=== PATIENT | female | born 1975 | race African-American/Black ===

== ENCOUNTER 2017-01-08 22:10 | Emergency (ER) | payer OTHER ==
[~2017-01-08] VITALS: Ht 165.1 cm; Wt 78.9 kg
[2017-01-08] MEDS ORDERED: ZOLO25TA PO (22:36)
[2017-01-08] MEDS ORDERED: ACET50TAOT PO (22:36)
[2017-01-09] MEDS ORDERED: KETOROLAC 60 MG/2 ML VIAL (J1885) IM ONE
[2017-01-09 00:42] VITALS: BP 128/67
[2017-01-09] MEDS ORDERED: VALI5TAB PO (00:43)
[2017-01-09] MEDS ORDERED: NAPR500T PO (00:43)
== END 2017-01-09 00:52 | disposition home or self-care (01) ==
LOC: M ED 22:10
DX: M54.41 Lumbago with sciatica, right side (principal); M54.42 Lumbago with sciatica, left side; Z79.899 Other long term (current) drug therapy
CPT/HCPCS: 96372; 99282; J1885; J3360

== ENCOUNTER → 2017-01-11 | Day surgery (SDC) | payer OTHER ==
[~2017-01-11] VITALS: Ht 165.1 cm; Wt 76.2 kg
[~2017-01-11] MED LIST: ACET50TAOT PO; ACETAMINOPHEN 650 MG SUPP As Ordered ONE; ACETAMINOPHEN 650 MG SUPP PR ONE; BUPIVACAINE HCL 0.25% 30 ML VIAL As Ordered ONE; CIPR-249 PO; GLYCOPYRROLATE INJ 0.2 MG/ML 2 ML VIAL As Ordered ONE; IBUP1TAB7 PO; KETO10TAB PO; KETOROLAC 60 MG/2 ML VIAL (J1885) As Ordered ONE; LACTATED RINGER'S 1000 ML IV ONE; LIDOCAINE 2% INJ 100 MG/5 ML SDV (FOR ANES.) As Ordered ONE; LR 1,000 ML IV ONE; LR 1,000 ML IV SCH; METHYLENE BLUE 0.5% (5MG/ML) 10 ML AMP (PROVAYBLUE)(Q9968 PER 1MG) As Ordered ONE; MIDAZOLAM INJ 2 MG/2 ML VIAL (J2250) As Ordered ONE; MOTR200T44 PO; NAPR500T PO; NEOSTIGMINE 1MG/ML 5 ML SYRINGE (J2710) As Ordered ONE; NORCOTAB PO; ONDANSETRON 4MG/2ML VIAL (J2405) As Ordered ONE; ONDANSETRON 4MG/2ML VIAL (J2405) IV PRN; OXYC1TAB23 PO; PERCOCET 5MG/325MG TAB As Ordered ONE; PERCOCET 5MG/325MG TAB PO PRN; PROPOFOL 200 MG/20 ML VIAL As Ordered ONE; ROCURONIUM BROMIDE 50 MG/5 ML VIAL/SYRINGE As Ordered ONE; VALI5TAB PO; ZITHTAB PO; ZOLO25TA PO; dexameTHASONE 4 MG/ML 1ML VIAL (J1100) As Ordered ONE; fentaNYL 100 MCG/2 ML INJECTION (J3010) As Ordered ONE; fentaNYL 100 MCG/2 ML INJECTION (J3010) IV PRN
[2017-01-11 09:58] LABS: MEAN CORPUSCULAR HEMOGLOBIN 30.4 pg (27.0-33.0); MEAN CORPUSCULAR HGB CONC 33.4 g/dl (32.0-36.5); MEAN CORPUSCULAR VOLUME 90.9 fl (80.0-96.0); RED CELL DISTRIBUTION WIDTH 12.5 % (11.5-14.5); WHITE BLOOD COUNT 4.6 K/mm3 (4.0-10.0)
[2017-01-11 10:34] LABS: ANION GAP 6 MEQ/L (8-16); BLOOD UREA NITROGEN 13 MG/DL (7-18); CALCIUM LEVEL 8.9 MG/DL (8.5-10.1); CARBON DIOXIDE LEVEL 29 MEQ/L (21-32); CHLORIDE LEVEL 103 MEQ/L (98-107); CREATININE FOR GFR 0.85 MG/DL (0.55-1.02); GLOMERULAR FILTRATION RATE > 60.0 (>60); GLUCOSE, FASTING 93 MG/DL (70-105); HCG, SERUM QUANTITATIVE < 1.0 MIU/ML; POTASSIUM SERUM 4.3 MEQ/L (3.5-5.1); SODIUM LEVEL 138 MEQ/L (136-145)
[2017-01-11 14:30] VITALS: BP 132/78
--- NOTE | 2017-01-15 07:45 | RO ---
DATE OF PROCEDURE: 01/11/2017 PREOPERATIVE DIAGNOSIS: Primary infertility. 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 No evidence of endometriosis. Patent left tube. Nonpatent right tube. Distortion of the intrauterine cavity on the right side secondary to compression from the myoma. OPERATION PROPOSED: Diagnostic laparoscopy, chromotubation hysteroscopy dilation and curettage. OPERATION PERFORMED: Diagnostic laparoscopy, hysteroscopy, dilation and curettage. SURGEON: Eduardo Quintero MD ALUMINUM BOAT INSPECTOR: ANESTHESIA: General, plus local anesthetic for intraperitoneal procedures. This lady is a 41-year-old, 0, who has come with the history of primary infertility. Lab work evaluation apparently was normal. Ultrasound suggested of a myoma on the right side of the uterus, external to the uterus. Normal endometrial cavity was noted and semen analysis had been normal. No evidence to suggest any etiology in regards to her primary infertility. Basal body temperature thermometer tracking was normal. She had elected to have a hysteroscopy, laparoscopy to evaluate for endometriosis and evaluate the fibroid tumor. She was concerned that her mother had required hysterectomy because of fibroid. Risks and benefits were discussed and the patient was booked for 01/11/2017. ESTIMATED BLOOD LOSS: Less than 20 mL. DESCRIPTION OF PROCEDURE: After adequate anesthesia, prepped and draped in the lithotomy position, a Quintero catheter in bladder draining clear urine. Sequentials on both legs. No requirement for antibiotics. Acetaminophen suppository 1300 mg per rectum. Time-out performed. A weighted speculum was placed in the vagina. Single-tooth tenaculum on the anterior lip of the cervix. Uterus is sounded to 8 cm. The bulb catheter for hysterosalpingogram with dye was placed in the intrauterine cavity without any difficulty, and reprepping and draping, a small subumbilical incision was made. Veress needle was applied. 3.1 liters of CO2 at a flow rate of 2 liters per minute to a pressure of 14. Visiport was then used. No evidence of perforation or bleeding was noted. Panoramic review of the right upper quadrant was normal. The liver edge was smooth. The right appendiceal area was normal. The right round ligament was normal. Noted that the uterus is deviated off to the right with a huge vascular myoma adherent to the cornua and the tube on the right side. Tis appeared to be larger than the actual uterus itself. The right ovary appeared to be normal. The anterior aspect of the bladder was clear. The left tube and ovary appeared to be normal. The cul-de-sac was clear. There was no evidence of endometriosis at that time, and the left upper quadrant appeared to be normal. A 3 mm port was placed on the left side in order to lift up the myoma. We were able to manipulate the dye and interestingly, the right tube did not demonstrate any fill and there was no evidence of even a protrusion of dye through the right tube. Even though we lifted up the myoma as best we could, it appeared to still be adherent on the right side probably compromising the tube. The left tube flowed freely with dye and left ovary appeared to be normal. With that done, we irrigated out the abdomen. We left 250 mL of normal saline in the abdomen, deflated to 4 mm pressure, removed the left 5 mm port, removed the mainstem port. Under direct vision, we then put a subcuticular stitch in the left side with Marcaine 0.25% and we put a deep stitch in the umbilical area closing off the fascia and a subcuticular stitch with Marcaine 0.25% and skin tapes the both places. Turning our attention to the vaginal part of the procedure, which was hysteroscopy, dilation and curettage, we removed the bulb catheter with the dye, again sounding the uterus to depth of 8 cm. It was slightly deviated off to the right. We then went ahead and dilated up to #14 dilator. Then, hysteroscope was introduced. Review surprisingly showed the defect in the posterior wall from the small myoma in the myometrium, but more impressively was the fact that there was no opening to the right tube based on the fact that the myoma on the right side probably closed off the entire tube. It was smooth. It appeared to be muscular. On the left side, we could see the obvious opening and the patency of dye and installation on the left side. The rest of the cavity appeared to be distorted because of the myoma on the right side, but not to a significant degree that an intrauterine could not implant. Our immediate thoughts about this patient is that she probably needs to have the myoma removed and the possibility of sacrificing the right tube as it appears to be compromised by the myoma. We used 150 mL of fluid in. We took 150 mL out. The instruments were then removed. The curettage specimen was sent off to pathology under separate cover. There was minimal amount of tissue in the uterus, it was mostly blood clots, but we sent what we got. The uterus was placed in anatomical position. We swabbed out the vagina. The Quintero catheter was removed, and the patient was sent to recovery in good condition.
== END | disposition home or self-care (01) ==
LOC: M SDC 09:21
PROVIDERS: ATTEND Obstetrics & Gynecology
DX: N97.1 Female infertility of tubal origin (principal); D25.9 Leiomyoma of uterus, unspecified; N85.4 Malposition of uterus; M54.2 Cervicalgia; F41.9 Anxiety disorder, unspecified; F32.9 Major depressive disorder, single episode, unspecified; Z79.899 Other long term (current) drug therapy; Z87.891 Personal history of nicotine dependence
CPT/HCPCS: 36415; 49320; 58558; 80048; 84702; 85027; 88304; J1100; J1885; J2250; J2405; J2710; J3010; Q9968

== ENCOUNTER 2017-01-14 20:40 | Inpatient (IN) | payer OTHER ==
[~2017-01-14] VITALS: Ht 165.1 cm; Wt 76.8 kg
[~2017-01-14 20:40] MED LIST changes: -ACETAMINOPHEN 650 MG SUPP As Ordered ONE; -ACETAMINOPHEN 650 MG SUPP PR ONE; -BUPIVACAINE HCL 0.25% 30 ML VIAL As Ordered ONE; -CIPR-249 PO; -GLYCOPYRROLATE INJ 0.2 MG/ML 2 ML VIAL As Ordered ONE; -IBUP1TAB7 PO; -KETO10TAB PO; -KETOROLAC 60 MG/2 ML VIAL (J1885) As Ordered ONE; -LACTATED RINGER'S 1000 ML IV ONE; -LIDOCAINE 2% INJ 100 MG/5 ML SDV (FOR ANES.) As Ordered ONE; -LR 1,000 ML IV ONE; -LR 1,000 ML IV SCH; -METHYLENE BLUE 0.5% (5MG/ML) 10 ML AMP (PROVAYBLUE)(Q9968 PER 1MG) As Ordered ONE; -MIDAZOLAM INJ 2 MG/2 ML VIAL (J2250) As Ordered ONE; -MOTR200T44 PO; -NEOSTIGMINE 1MG/ML 5 ML SYRINGE (J2710) As Ordered ONE; -NORCOTAB PO; -ONDANSETRON 4MG/2ML VIAL (J2405) As Ordered ONE; -ONDANSETRON 4MG/2ML VIAL (J2405) IV PRN; -OXYC1TAB23 PO; -PERCOCET 5MG/325MG TAB As Ordered ONE; -PERCOCET 5MG/325MG TAB PO PRN; -PROPOFOL 200 MG/20 ML VIAL As Ordered ONE; -ROCURONIUM BROMIDE 50 MG/5 ML VIAL/SYRINGE As Ordered ONE; -ZITHTAB PO; -dexameTHASONE 4 MG/ML 1ML VIAL (J1100) As Ordered ONE; -fentaNYL 100 MCG/2 ML INJECTION (J3010) As Ordered ONE; -fentaNYL 100 MCG/2 ML INJECTION (J3010) IV PRN
[2017-01-14] MEDS ORDERED: VALI5TAB PO (21:02)
[2017-01-14] MEDS ORDERED: NAPR500T PO (21:02)
[2017-01-14] MEDS ORDERED: MOTR200T44 PO (21:02)
[2017-01-14] MEDS ORDERED: OXYC1TAB23 PO (21:02)
[2017-01-14] MEDS ORDERED: NS 1,000 ML IV ONE (21:15)
[2017-01-14] MEDS ORDERED: MORPHINE 4 MG/ML 1ML SYRINGE IV ONE (21:15)
[2017-01-14] MEDS ORDERED: GASTROGRAFIN SOLUTION 30ML (Q9963) PO ONE ×2 (21:40→22:10)
[2017-01-14 22:02] LABS: ADD MANUAL DIFFER YES; DIFF SLIDE NUMBER 171; MEAN CORPUSCULAR HEMOGLOBIN 30.3 pg (27.0-33.0); MEAN CORPUSCULAR HGB CONC 32.9 g/dl (32.0-36.5); PLATELET COUNT, AUTOMATED 303 k/mm3 (150-450); RED CELL DISTRIBUTION WIDTH 13.2 % (11.5-14.5); WHITE BLOOD COUNT 7.6 K/mm3 (4.0-10.0)
[2017-01-14 22:07] LABS: INR 1.1
[2017-01-14 22:24] LABS: ALBUMIN 2.8 GM/DL (3.2-5.2); ALBUMIN/GLOBULIN RATIO 0.72 (1.00-1.93); ALKALINE PHOSPHATASE 77 U/L (45-117); ALT/SGPT 17 U/L (12-78); AMYLASE 70 U/L (25-115); ANION GAP 9 MEQ/L (8-16); AST/SGOT 15 U/L (15-37); BILIRUBIN,DIRECT 0.5 MG/DL (0.0-0.2); BLOOD UREA NITROGEN 14 MG/DL (7-18); CALCIUM LEVEL 9.4 MG/DL (8.5-10.1); CARBON DIOXIDE LEVEL 28 MEQ/L (21-32); CHLORIDE LEVEL 98 MEQ/L (98-107); CREATININE FOR GFR 0.97 MG/DL (0.55-1.02); GLOMERULAR FILTRATION RATE > 60.0 (>60); GLUCOSE, FASTING 99 MG/DL (70-105); POTASSIUM SERUM 4.1 MEQ/L (3.5-5.1); SODIUM LEVEL 135 MEQ/L (136-145); TOTAL PROTEIN 6.7 GM/DL (6.4-8.2)
[2017-01-14 22:28] LABS: CONTROL LINE HCG INT CTR LINE PRESENT
[2017-01-14 22:44] LABS: BANDS 5 % (< 11)
[2017-01-14 22:45] LABS: TOXIC VACUOLATION 1+
[2017-01-14] MEDS ORDERED: ISOVUE-370 76% 100ML VIAL (Q9967) As Ordered ONE (23:20)
--- NOTE | 2017-01-15 01:20 | REPUSA ---
CLINICAL HISTORY: Post op. TECHNIQUE: Multiple axial, sagittal and coronal CT images were obtained through the abdomen and pelvi s after administration of intravenous contrast material. COMMENTS: The liver is of uniform attenuation without mass or defect. There is no intra or extrahepatic biliary ductal dilatation. The spleen is normal. The gallbladder is within normal limits. The pancreas is of normal contour and attenuation characteristics. There is no evidence of adrenal mass. Both kidneys demonstrate prompt and equal nephrograms. The kidneys are normal in size, shape and conf iguration. There is no evidence of renal or ureteral mass. No renal or ureteral calculi are identifie d. There is no hydroureter or hydronephrosis. Free air is noted, likely post-op. Diffuse abdominal and pelvic ascites is noted. No evidence for appendicitis. Multiple dilated loops of small bowel are noted with transition in the distal ileum compatible with small bowel obstruction. There is no evidence of intrinsic or extrinsic bladder mass. Images of the lung bases show no evidence of pleural or parenchymal mass. There are no pleural effusi ons. Bibasilar consolidations are noted compatible with pneumonia. The bony structures are free of lytic or blastic lesions. IMPRESSION: Free air is noted, likely post-op. Diffuse abdominal and pelvic ascites is noted. Multiple dilated loops of small bowel are noted with transition in the distal ileum compatible with s mall bowel obstruction. Bibasilar consolidations are noted compatible with pneumonia. Thank you for your kind referral of this patient.
[2017-01-15] MEDS ORDERED: IBUP1TAB7 PO (02:39)
[2017-01-15] MEDS ORDERED: MORPHINE 4 MG/ML 1ML SYRINGE IV ONE (03:00)
[2017-01-15] MEDS: LR 1,000 ML IV SCH ×3 (04:45→16:24)
[2017-01-15] MEDS ORDERED: ONDANSETRON 4MG/2ML VIAL (J2405) IV PRN (04:45)
[2017-01-15 06:15] VITALS: BP 135/78
--- NOTE | 2017-01-15 06:21 | CR ---
DATE OF CONSULTATION: 01/15/2017 HISTORY OF PRESENT ILLNESS: This lady is a 41-year-old 0 who had history of a diagnostic laparoscopy , hysteroscopy, dilation and curettage (D and C) for primary infertility. At the time of the operative procedure, we noticed that she had a large myoma on the right side of the fundus which was incorporated into the right tube. The ovary itself appeared to be normal. The left ovary and tube were normal. Chromotubation indicated patent left tube, but nonpatent right tube. The rest of the examination was unremarkable. The surgical procedure was unremarkable. There was no evidence to suggest any perforation at time of surgery. Hysteroscopy D and C were performed and confirmed the myoma compressing the uterine cavity, but no other abnormality was noted. She did have a D and C; however, there was minimal tissue as she had just completed her period. She went home in the usual fashion postoperatively as a day stay with Percocet and ibuprofen, and in her history to date says that when she went home she had difficulty in voiding but eventually that resolved. She was able to keep fluids down, but she was not hungry and did not feel like eating, but she did maintain fluid control, but she said she never passed any gas. She came in through emergency because of abdominal pain which was increasing in intensity. She had no nausea, vomiting at that time, but she did have vomiting at the time of the CT scan and presently with the nasogastric (NG) tube in she has some green fluid which is the seaweed and some other herbal medicine in the drink that she was drinking. PHYSICAL EXAMINATION: On physical examination she is normocephalic, atraumatic. Neck full range of motions. Pupils equal and reactive to light. She is responsive, answers questions. She is oriented to the three spheres. Her chest appears to be clear although the CT scan says there is some pneumonia-like changes in the lower bases, but she is able to take a deep breath without any pain. She has no costovertebral angle tenderness but she is having some pain down the side of her leg, probably sciatic and it is probably related to position. Her abdomen is distended although it is less so now that she has the NG tube in. There is evidence of bowel sounds present. The incisional sites are clean and dry. There is no rebound or guarding but there is on deep palpation some discomfort. The rest of the examination: She has no rashes or lesions or pruritus. She is not complaining of any arthralgia or myalgia. She is not complaining of cough, wheeze, shortness of breath or dyspnea on exertion. She has no allergies. She has no chest pain. She is not bleeding. She is neuro complete. She presently is able to void. As mentioned, she has not been able to pass gas. She is bit distended and CT scan indicates the suggestion of small bowel obstruction. Her gynecologic history is unremarkable. Her surgical history is negative except for this initial event. She has no contributing family history. The only thing that bothers her is the fact that her mother had fibroids and required to have a hysterectomy, and this patient has not had a baby to present. She does not smoke or drink, does not abuse drugs. She is . There is no domestic violence. On review of her vitals, her temperature is 99.1, respirations are 18, pulse 119. She oxygen saturates on room air at 95%. Blood pressure is 136/79. LABORATORY DATA: Her white count 7.6, hemoglobin 11.9, hematocrit 36.3. Platelets are estimated as normal. Electrolytes are normal. Chemistry is normal. Anion gap is nine. GFR is normal. Urine was not taken. Her coagulation studies are within normal limits. Her liver function is normal. CT reveals free air which is normal postoperatively, and having left 250 mL of saline in the abdomen which has not resolved yet. Dilated loops of small bowel and basilar consolidation in the lower lobe of her lungs. There is transition through the to the ileum. In summary, we have a postoperative day two patient with small bowel obstruction , etiology yet to be determined, presently comfortable with the NG tube and after discussion with Dr. Gonzalez, maintaining NG tube and monitoring the patient for resolution in the next 24 hours and planned intervention if necessary. Edited: raymon 01/28/2017 [id number] MTDD
[2017-01-15 08:00] VITALS: BP 135/93
--- NOTE | 2017-01-15 09:13 | REP ---
CHEST, ONE VIEW: HISTORY: Dyspnea. Patchy density is present in the lower lobes consistent with atelectasis or infiltrates. A small amount of free air is present under the right hemidiaphragm. The heart is normal in size. The pulmonary vasculature is normal in appearance. IMPRESSION: 1. Bibasilar atelectasis or infiltrates. 2. There is a small amount of free air under the right hemidiaphragm likely secondary to recent surgery. Signed by Mahesh Hernandez MD 01/15/2017 09:25 A
[2017-01-15] MEDS ORDERED: PROMETHAZINE INJ 25 MG/ML VIAL (J2550) IV PRN (11:00)
[2017-01-15 11:07] LABS: MEAN CORPUSCULAR HEMOGLOBIN 30.2 pg (27.0-33.0); MEAN CORPUSCULAR HGB CONC 32.7 g/dl (32.0-36.5); MEAN CORPUSCULAR VOLUME 92.2 fl (80.0-96.0); RED CELL DISTRIBUTION WIDTH 13.2 % (11.5-14.5); WHITE BLOOD COUNT 8.5 K/mm3 (4.0-10.0)
[2017-01-15 11:29] LABS: ANION GAP 9 MEQ/L (8-16); BLOOD UREA NITROGEN 14 MG/DL (7-18); CALCIUM LEVEL 8.9 MG/DL (8.5-10.1); CARBON DIOXIDE LEVEL 29 MEQ/L (21-32); CHLORIDE LEVEL 100 MEQ/L (98-107); CREATININE FOR GFR 0.75 MG/DL (0.55-1.02); GLOMERULAR FILTRATION RATE > 60.0 (>60); GLUCOSE, FASTING 114 MG/DL (70-105); POTASSIUM SERUM 4.2 MEQ/L (3.5-5.1); SODIUM LEVEL 138 MEQ/L (136-145)
[2017-01-15] MEDS: KETOROLAC 30 MG/ML VIAL (J1885) IV PRN ×2 (11:58→18:39)
[2017-01-15 12:00] VITALS: BP 157/93
--- NOTE | 2017-01-15 12:54 | REP ---
ABDOMEN, FLAT AND UPRIGHT, PA CHEST, THREE VIEWS: HISTORY: Small bowel obstruction. COMPARISON: CT 01/14/2017 Air is present in small and large intestine. There are several dilated loops of small intestine. Several air fluid levels are present. The number of dilated loops of small intestine and degree of dilatation is decreased compared to the previous study. A small amount of free air is present under the right hemidiaphragm. An NG tube is present. Linear densities are present in the lower lobes consistent with atelectasis. IMPRESSION: Findings consistent with small bowel obstruction that are decreased compared to the previous study. Signed by Mahesh Hernandez MD 01/15/2017 12:57 P
[2017-01-15] MEDS: ONDANSETRON 4MG/2ML VIAL (J2405) IV PRN (15:49)
[2017-01-15 16:00] VITALS: BP 138/86
[2017-01-15] MEDS: MORPHINE 2 MG/ML 1ML SYRINGE IV PRN (16:24)
[2017-01-15 20:00] VITALS: BP 134/79
[2017-01-16] VITALS: BP 142/78
[2017-01-16] MEDS: LR 1,000 ML IV SCH ×3 (00:30→21:26)
[2017-01-16 04:00] VITALS: BP 150/80
[2017-01-16] MEDS: METOCLOPRAMIDE INJ 10MG/2ML VIAL (J2765) IV PRN (04:57)
--- NOTE | 2017-01-16 09:08 | REP ---
Acute abdominal series series including PA chest and supine upright abdomen: Comparisons are 01/15/[address] of 01/15/2017. PA chest: There is free air beneath the right hemidiaphragm, however, appears decreased in volume from 01/15/2017. There is bibasilar atelectasis above both right and left hemidiaphragms, not significantly changed. The remainder the lung woo are clear. There is a nasogastric tube terminating satisfactorily in the abdominal left upper quadrant, unchanged from 01/15/2017. Cardiac size is normal. Impression: Free subdiaphragmatic air beneath the right hemidiaphragm. This appears decreased in volume. Bibasilar atelectasis. Abdomen, supine upright views: There are dilated small bowel loops containing multiple air-fluid levels compatible with small bowel obstruction. The number of air-fluid levels appears decreased from 01/15/2017. Signed by Justo Mora MD 01/16/2017 08:59 A
[2017-01-16 09:15] VITALS: BP 141/93
--- NOTE | 2017-01-16 09:53 | HPE ---
DATE OF ADMISSION: 01/15/2017 BRIEF HISTORY OF PRESENT ILLNESS: The patient is a 41-year-old female who underwent diagnostic laparoscopy, approximately 4 days to prior to admission. The patient has not had any bowel movement since that time. She has developed some abdominal distension as well as nausea, vomiting over the last 24-48 hours. She has not had any flatus since the operation. She did not have any significant lysis of adhesions, and mostly it was a diagnostic laparoscopy more than anything else. She underwent a CT scan after having a workup in the emergency room. The workup showed a normal white count of 7.6 on admission and her imaging shows dilated small bowel with some free air that is present and the description is most likely post-op. There is some abdominal ascites noted, and the patient had somewhat of a transition point in the distal ileum. The CAT scan remarks about possible pneumonia, although this is probably compressive atelectasis. She has a very distended stomach on her CAT scan, and in the emergency room, she had an nasogastric (NG) tube placed. With the NG tube placed, she felt significantly improved with decreasing pain, etc. She states she did have some minimal flatus overnight and overall her abdominal pain has improved substantially. Her past medical history is significant for history of diagnostic laparoscopy, history of dilation and curettage. PHYSICAL EXAMINATION: Reveals a 41-year-old black female who looks stated age. HEENT: Reveals an atraumatic, normocephalic head with extraocular movements intact. Pupils are equal and reactive to light. Sclerae nonicteric. Oropharynx clear without exudate or lesions. Neck: Supple without adenopathy. Lungs: Clear to auscultation without crackles, wheezes or rhonchi. Heart is regular without murmur. Abdomen is distended, tympanitic in the epigastric area. She has some minimal NG tube output at this point. It is bilious, and she is tensely distended but she remarks that she feels less distended than she had initially when she was in the emergency room and she is having less pain and discomfort throughout her abdomen. Extremities are warm, well-perfused. IMPRESSION/PLAN: The patient has small-bowel obstruction/possible ileus. It is hard to know the etiology of this. Fortunately, her white count is normal and I feel that it is most likely of undetermined etiology at this point. We are not seeing an infectious source. Given this has been so many days out from operative intervention, it is unlikely that operative injury at the time of surgery is occurring at this time so far out given that there was no significant lysis of adhesions, etc. performed. In any case, we will continue her current treatment given her normal white count and being afebrile. We will see how she does over the day and if she has decreasing distension overnight, flatus, bowel movements, etc., we can get a followup lab/x-ray depending on her status.
--- NOTE | 2017-01-16 09:57 | IPN ---
DATE: 01/16/2017 The patient states that this morning she feels better even than last night. When I saw her last night, she had some improvements overall from the previous morning and continues to make some progress; however, very slowly. She states that she had a very small bowel movement and is still making some minimal flatus. Her NG tube drainage is still present, but not as significant in amount. We did perform a followup KUB this morning that showed decreasing free air and decreasing small-bowel obstruction pattern. The only issue at this time is that she did have a temperature spike of 100.9 overnight. This may be related to the compressive atelectasis appreciated on her x-rays, although other options do include a pneumonia at the time of intubation. Overall, she states that she is feeling slowly better over time with decreasing pain. On her physical exam, her abdomen is still distended, but it is improved since yesterday but still tight and tympanitic, mostly uncomfortable on the left-hand side where she has the dilated small bowel appreciated, but no significant peritoneal signs. IMPRESSION AND PLAN: The patient has a slow progressive improvement of this partial obstructions/ileus. I would recommend that we continue on current treatment, n.p.o., IV fluids, and will consider IV antibiotics if her temperature goes up. Will recheck her labs if temperature goes up again. Will check some followup labs in the morning.
[2017-01-16 14:00] VITALS: BP 145/89
[2017-01-16] MEDS: KETOROLAC 30 MG/ML VIAL (J1885) IV PRN (14:12)
[2017-01-16 16:30] VITALS: BP 165/91
[2017-01-16 20:00] VITALS: BP 174/87
[2017-01-16] MEDS ORDERED: zolPIDEM TARTRATE 5 MG TAB PO PRN (21:00)
[2017-01-16] MEDS: ONDANSETRON 4MG/2ML VIAL (J2405) IV PRN (21:25)
[2017-01-16] MEDS: ACETAMINOPHEN TAB 650MG DOSE (2X325MG) PO PRN (21:26)
[2017-01-17] VITALS: BP 175/86
[2017-01-17] MEDS: KETOROLAC 30 MG/ML VIAL (J1885) IV PRN ×3 (01:01→20:57)
[2017-01-17 04:00] VITALS: BP 168/86
[2017-01-17] MEDS: LR 1,000 ML IV SCH ×4 (05:47→23:58)
[2017-01-17 06:39] LABS: BASO % 0.2 % (0.0-1.0); EOS % 0.2 % (0.0-3.0); LARGE UNSTAINED CELL # 0.1 K/mm3 (0.0-0.4); LARGE UNSTAINED CELL % 1.1 % (0.0-4.0); LYMPH # 0.8 K/mm3 (1.5-4.5); LYMPH % 7.3 % (24.0-44.0); MEAN CORPUSCULAR HEMOGLOBIN 30.7 pg (27.0-33.0); MEAN CORPUSCULAR HGB CONC 33.4 g/dl (32.0-36.5); MONO # 0.4 K/mm3 (0.0-0.8); MONO % 3.9 % (0.0-5.0); NEUTROPHILS # 8.7 K/mm3 (1.8-7.7); NEUTROPHILS % 87.3 % (36.0-66.0); PLATELET COUNT, AUTOMATED 299 k/mm3 (150-450); RED CELL DISTRIBUTION WIDTH 13.3 % (11.5-14.5)
[2017-01-17 07:21] LABS: ANION GAP 10 MEQ/L (8-16); BLOOD UREA NITROGEN 18 MG/DL (7-18); CALCIUM LEVEL 8.7 MG/DL (8.5-10.1); CARBON DIOXIDE LEVEL 28 MEQ/L (21-32); CHLORIDE LEVEL 103 MEQ/L (98-107); CREATININE FOR GFR 0.67 MG/DL (0.55-1.02); GLOMERULAR FILTRATION RATE > 60.0 (>60); GLUCOSE, FASTING 88 MG/DL (70-105); POTASSIUM SERUM 3.8 MEQ/L (3.5-5.1); SODIUM LEVEL 141 MEQ/L (136-145)
[2017-01-17 08:00] VITALS: BP 166/92
[2017-01-17] MEDS: PIPERACILLIN/TAZOBACTAM SOD 3.375 GM in D5W MINI-BAG PLUS 50 ML IV SCH ×3 (08:12→20:43)
--- NOTE | 2017-01-17 10:22 | REP ---
Acute abdominal series four views including upright PA chest, upright abdomen and two supine views of the abdomen Comparison is 01/16/2017. PA chest: There is free air beneath the right hemidiaphragm as previously. There is bibasilar atelectasis above both right and left hemidiaphragms, unchanged. Remainder of the lung woo are clear. Cardiac size is normal. Nasogastric tube is again identified terminating in the abdominal left upper quadrant in satisfactory location, unchanged. Impression: No interval change. Abdomen, supine upright views: There are multiple dilated small bowel loops containing multiple air-fluid levels compatible with small bowel obstruction. The appearance is unchanged. Impression: No interval change. Signed by Justo Mora MD 01/17/2017 10:13 A
[2017-01-17 12:00] VITALS: BP 168/87
[2017-01-17] MEDS: METOCLOPRAMIDE INJ 10MG/2ML VIAL (J2765) IV PRN (13:03)
[2017-01-17] MEDS: IPRATROPIUM 0.5MG/ALBUTEROL 2.5MG INH SOL UD 3ML (DUONEB)(J7620) NEB SCH ×2 (14:00→21:55)
[2017-01-17] MEDS ORDERED: IPRATROPIUM 0.5MG/ALBUTEROL 2.5MG INH SOL UD 3ML (DUONEB)(J7620) NEB PRN (14:30)
[2017-01-17 16:00] VITALS: BP 157/93
[2017-01-17 20:00] VITALS: BP 171/91
[2017-01-17] MEDS: ONDANSETRON 4MG/2ML VIAL (J2405) IV PRN (23:40)
[2017-01-18] VITALS: BP 169/96
--- NOTE | 2017-01-18 00:15 | IPN ---
DATE: 01/17/2017 Subjectively, the patient had four bowel movements yesterday and had two this morning, and also an additional one since Dr. Quintero had been by to see her. He had seen her early this morning and felt that she was improving and since earlier this morning, she states that even since that time she has been feeling better. She did have some temperature elevation last night, and her white count is 10 today, which is still within normal limits, but there is still a slight left shift this morning. Overall, she has had no nausea, no vomiting. Her nasogastric (NG) tube output has continued to be some minimal bilious but more saliva in it today and yesterday's output was only 350. She is overall stating that her abdominal pain is better. She is only taking Toradol for discomforts, says that her pain is not very much compared to when she initially was brought to the emergency room. There are times when she does not have any significant pain whatsoever. Objective, her maximum temperature (T max) overnight was 101.8; however, it is down to 98.9 this morning. She has good urine output. PHYSICAL EXAMINATION: She still has some atelectasis of her bases and taking poor inspiratory efforts but really is not laboring with her breathing at all, and she states that her cough/sputum was clear, really not a significantly productive sputum. Abdomen is decreasing in distension but it is still moderately distended overall. She has some mild tenderness to deep palpation. Yesterday, it was on the left-hand side; today, it is more on the right lateral abdomen. There is not diffuse peritoneal signs. No rigid abdomen, etc. It is somewhat of a distended abdomen, more so than anything else. Extremities are warm, well perfused. IMPRESSION AND PLAN: 1. The patient has had several bowel movements, and I ordered a followup KUB for today. Wondering if she had resolved her obstruction enough to discontinue her NG tube, given that clinically she was feeling better and was desiring food; however, the x-ray does not show any significant improvement. Although, I do think the bowel size itself seems to be less than it was yesterday, but, otherwise, no other significant improvement. There is still paucity of air throughout the colon at this point, and she seems to have mobilized this in its majority. And thus, at this point, it is hard to tell if she has a high-grade partial obstruction but definitely a partial obstruction given the bowel movements that she has had. She states these are also liquid bowel movements, suggesting partial obstructive component to it. The other possibility obviously is that she might be developing an abscess, although I would have expected her white count to bump up more, especially at this time. I am not sure exactly the etiology of her ileus/partial obstruction, but I do feel that she needs to stay nothing by mouth, NG tube for decompression. Will see how she does overnight from a GI standpoint prior to removing the tube. At this point, given that she is still moderately distended, I would like to avoid operative intervention given that her distension may prohibit a laparoscopic approach and may require an open procedure. 2. Elevated temperature and her white count is slightly increasing. My concern with this is that there might be an underlying infectious source that is contributing to this partial obstruction/ileus issue, and I do feel it is reasonable to start her on some broad-spectrum antibiotics. If she has continued loose stools, we may need to check her for some Clostridium difficile as well. Although, that would be a very unusual presentation for her. Overall, she continues to make some clinical improvement, although it is very slow but the progression is visible. She also states she is very hungry and would like to eat, but obviously with her abdominal distension, I would like to forego that at this time.
[2017-01-18] MEDS: IPRATROPIUM 0.5MG/ALBUTEROL 2.5MG INH SOL UD 3ML (DUONEB)(J7620) NEB SCH ×4 (02:00→20:41)
[2017-01-18] MEDS: PIPERACILLIN/TAZOBACTAM SOD 3.375 GM in D5W MINI-BAG PLUS 50 ML IV SCH ×4 (02:00→20:20)
[2017-01-18 04:00] VITALS: BP 166/94
[2017-01-18] MEDS: KETOROLAC 30 MG/ML VIAL (J1885) IV PRN ×2 (04:16→15:49)
[2017-01-18 08:00] VITALS: BP 160/96
--- NOTE | 2017-01-18 09:21 | REP ---
Abdominal series: Three views. History: Small bowel obstruction. Comparison study January 17, 2017. Findings: A nasogastric tube remains in place terminating in the region of the gastric fundus. A small quantity of free air persists under the right hemidiaphragm. There is bilateral lower lobe plate-like atelectasis in the lung woo. No new infiltrate is seen. Heart is not felt to be enlarged. Supine and erect views of the abdomen show persistent dilated air and fluid filled loops of small intestine in the central abdomen displaying differential air-fluid levels consistent with high-grade small bowel obstruction pattern. There is a paucity of distal bowel gas. Impression: High-grade small bowel obstruction pattern persists. Some free air persists under the right hemidiaphragm. Signed by Henrry Cohen MD 01/18/2017 10:48 A
[2017-01-18] MEDS: PANTOPRAZOLE 40MG INJ (PROTONIX) (C9113) IV SCH (09:31)
[2017-01-18 12:00] VITALS: BP 161/86
[2017-01-18] MEDS: LR 1,000 ML IV SCH (15:00)
[2017-01-18 16:00] VITALS: BP 141/85
[2017-01-18 20:44] VITALS: BP 165/90
[2017-01-19] VITALS (12 sets, daily range): BP systolic 144–183; BP diastolic 78–93
[2017-01-19] MEDS: IPRATROPIUM 0.5MG/ALBUTEROL 2.5MG INH SOL UD 3ML (DUONEB)(J7620) NEB SCH ×4 (01:11→20:00)
[2017-01-19] MEDS: PIPERACILLIN/TAZOBACTAM SOD 3.375 GM in D5W MINI-BAG PLUS 50 ML IV SCH ×4 (02:16→22:24)
[2017-01-19] MEDS: LR 1,000 ML IV SCH ×3 (02:17→18:17)
[2017-01-19] MEDS: PANTOPRAZOLE 40MG INJ (PROTONIX) (C9113) IV SCH (08:25)
[2017-01-19] MEDS: ACETAMINOPHEN TAB 650MG DOSE (2X325MG) PO PRN ×2 (08:25→13:40)
--- NOTE | 2017-01-19 09:32 | REP ---
Acute abdominal series series including PA chest and supine upright abdomen: Comparison is 2016. PA chest: There is bibasilar atelectasis, not significantly changed. There is free air beneath the right hemidiaphragm, slightly decreased from the prior study. The lung woo otherwise clear. Cardiac size is normal. A nasogastric tube is again identified terminating satisfactorily in the abdominal left upper quadrant, unchanged. Impression: No interval change except that the volume of free air beneath the right hemidiaphragm has slightly decreased. Abdomen, supine and upright views: Dilated small bowel loops containing multiple air-fluid levels are again identified, unchanged. Signed by Justo Mora MD 01/19/2017 09:24 A
[2017-01-19 10:32] LABS: MEAN CORPUSCULAR HEMOGLOBIN 30.7 pg (27.0-33.0); MEAN CORPUSCULAR HGB CONC 32.5 g/dl (32.0-36.5); MEAN CORPUSCULAR VOLUME 94.4 fl (80.0-96.0); RED CELL DISTRIBUTION WIDTH 13.5 % (11.5-14.5); WHITE BLOOD COUNT 11.4 K/mm3 (4.0-10.0)
[2017-01-19] MEDS: MORPHINE 2 MG/ML 1ML SYRINGE IV PRN (13:39)
[2017-01-19] MEDS ORDERED: BUPIVACAINE/EPIN 0.25% 30 ML VIAL As Ordered ONE (13:59)
--- NOTE | 2017-01-19 14:12 | IPN ---
DATE: 01/19/2017 Subjectively, the patient last night was seen late in the evening and she had been having bowel movements during the day, actually had incontinence of one of her bowel movements and since that time she had been having decreasing pain, distension, and overall feeling well. Her NG tube output had significantly diminished. She had been up walking around most of the day and when we checked residuals there was only about 10 mL of mucous in this. In general the x-ray, although it reports that there was not any significant improvement, I measured the size and diameter of the bowel and indeed there was a decrease in bowel size and I feel that there was some air that had transitioned into the colon on this study. The plan was to followup x-ray this morning and possibly see if we could trial an NG tube out or depending on her progress, may need an upper GI with small-bowel follow through if this is still a persistent problem and only slowly improving. However, this morning there was obvious increasing distension and the patient was having some crampy abdominal pain. No nausea, no vomiting. She had only minimal NG tube output. She did have a low grade temperature last night again and when we repeated her white blood cell count it was up from 10 to 11. On her physical exam her abdomen is more distended today than it was yesterday without guarding, without rebound. No peritoneal signs are appreciated. IMPRESSION AND PLAN: The patient has failed NG tube decompression and essentially failed clamping of the NG tube. Given this failure, I have discussed with the patient whether to proceed with an upper GI, whether to try suctioning over the next 24 hours, etc., but my concern with this elevation of the white count, although not significant, in combination with some temperature elevations, all this leaves us to be more cautious and concerned that there may be some intra-abdominal process ongoing that is not amenable/will resolve with NG tube decompression. Thus I recommended that we proceed with a laparoscopy, possible laparotomy with possible lysis of adhesions, possible bowel resection and possible drainage of hematoma or abscess or other etiology that may be causing this bowel obstruction. We discussed multiple possible etiologies with the patient and family and possible plans. Unfortunately, I do feel with her distension, this makes it more likely that we will proceed with a laparotomy and will fail the attempt at laparoscopy. She understands and would like to proceed with things as soon as possible to get to the bottom of the this issue, and start getting to feel better quickly.
[2017-01-19] MEDS ORDERED: MIDAZOLAM INJ 2 MG/2 ML VIAL (J2250) As Ordered ONE (14:48)
[2017-01-19] MEDS ORDERED: fentaNYL 100 MCG/2 ML INJECTION (J3010) As Ordered ONE ×2 (14:53→18:03)
[2017-01-19] MEDS ORDERED: dexameTHASONE 4 MG/ML 1ML VIAL (J1100) As Ordered ONE (16:03)
[2017-01-19] MEDS ORDERED: HYDROmorphone HCL 2 MG/ML 1ML VIAL (J1170) As Ordered ONE (16:03)
[2017-01-19] MEDS ORDERED: ONDANSETRON 4MG/2ML VIAL (J2405) As Ordered ONE ×2 (16:03→17:07)
[2017-01-19] MEDS ORDERED: BUPIVACAINE HCL 0.25% 10 ML VIAL As Ordered ONE (17:07)
[2017-01-19] MEDS ORDERED: BUPIVACAINE LIPOSOME/PF 1.3% 20 ML VIAL (13.3MG/ML)(EXPAREL) As Ordered ONE (17:07)
[2017-01-19] MEDS ORDERED: NEOSTIGMINE 1MG/ML 5 ML SYRINGE (J2710) As Ordered ONE (17:09)
[2017-01-19] MEDS ORDERED: GLYCOPYRROLATE INJ 0.2 MG/ML 2 ML VIAL As Ordered ONE (17:09)
[2017-01-19] MEDS ORDERED: MORPHINE 1MG/ML IN 0.9% NACL 100ML IV BAG IV PRN (17:45)
[2017-01-19] MEDS ORDERED: NALBUPHINE HCL 10 MG/ML AMP (J2300) IV PRN (17:45)
[2017-01-19] MEDS ORDERED: NALOXONE INJ 0.4 MG/1 ML VIAL (J2310) IV PRN (17:45)
[2017-01-19] MEDS ORDERED: ONDANSETRON 4MG/2ML VIAL (J2405) IV PRN ×2 (17:45→18:15)
[2017-01-19] MEDS ORDERED: diphenhydrAMINE INJ 50MG/ML VIAL (J1200) IV PRN (17:45)
[2017-01-19] MEDS ORDERED: EPIDURAL/PCA KEYS XX PRN (17:45)
[2017-01-19] MEDS ORDERED: hydrALAZINE INJ 20 MG/ML VIAL As Ordered ONE (17:56)
[2017-01-19] MEDS ORDERED: MORPHINE 1MG/ML IN 0.9% NACL 100ML IV BAG As Ordered ONE (18:01)
[2017-01-19] MEDS: fentaNYL 100 MCG/2 ML INJECTION (J3010) IV PRN ×4 (18:05→18:25)
[2017-01-19] MEDS ORDERED: LR 1,000 ML IV SCH (18:15)
[2017-01-19] MEDS ORDERED: MORPHINE 2 MG/ML 1ML SYRINGE IV PRN (18:15)
[2017-01-19] MEDS ORDERED: hydrALAZINE INJ 20 MG/ML VIAL IV SCH (19:00)
[2017-01-19] MEDS: ALVIMOPAN 12 MG CAPSULE (ENTEREG) PO SCH (21:31)
[2017-01-19] MEDS: KETOROLAC 30 MG/ML VIAL (J1885) IV PRN (21:33)
--- NOTE | 2017-01-19 23:15 | RO ---
DATE OF PROCEDURE: 01/19/2017 PREOPERATIVE DIAGNOSIS: Small-bowel obstruction. POSTOPERATIVE DIAGNOSIS: Small bowel perforation with localized abscess. PROCEDURE: Exploratory laparotomy with small-bowel resection and small bowel anastomosis. SURGEON: Stanislav Gonzalez MD INTERNAL SECURITY MANAGER: Dr. Quintero (Dr. Quintero provided retraction, exposure and assistance with closure and assistance with anastomosis of the small bowel. ESTIMATED BLOOD LOSS: Minimal. FLUIDS: Crystalloid. BRIEF PROCEDURE SUMMARY: The patient was brought to the operating room was given general anesthesia. After adequate anesthesia and preoperative antibiotics were given, the patient was prepped and draped in the usual sterile fashion. Previous midline/umbilical incision was opened with skin knife and the #0 Vicryl was removed at this time. The peritoneum was entered and there was just underlying the infraumbilical area, there was a pocket of anterior content that was entered. Thus an open laparotomy was performed at this time. Skin incision was made with a #15 blade. Electrocautery was used cut through dermis, underlying subcutaneous tissue and down to the fascia. Fascia was incised with electrocautery as well and opened into the peritoneum. Blunt dissection on the posterior aspect of the perineum was used to dissect off on the very adherent omentum as well as small bowel in this area. And then once this was performed and the wound was opened adequately to visualize the entire area of concern, which revealed a loop of small bowel that had some hemorrhagic features to the mesentery and evidence of a perforation on the lateral wall of the small bowel. The bowel surrounding this was mobilized bluntly, given there were some minimal adhesions between the small bowel to small bowel; small bowel to the colon on the side as well as some additional inflammation was appreciated and adhesions in this area. These were new adhesions with fibrinous exudate and some enteric staining as well. Next, once this was mobilized adequately the small bowel proximal to the perforation was transected using a KATHI 75 load. The mesentery of the small bowel was taken between vascular echelon load. Multiple loads were used to transect the small bowel and distal to this the small bowel was transected using a KATHI load. Once this area was resected, the small bowel distal to the perforation was examined and did reveal some fibrinous exudate but I was able to follow this all the way to the cecum. There was some angles that were able to be smoothed out in this area, but the thickened fibrinous exudate on this was not taken off the bowel with concerns of damaging the serosa. But in any case, some of fluid that was in the distal portion of this bowel was able to be milked through this area without difficulty and into the cecum. Next a [id number] anastomosis with a KATHI green load was created and then the enterotomy was closed with a 75 echelon green load as well. The anterior surface of the anastomosis was imbricated using #3-0 Vicryl and the crotch of the anastomosis was brought to the #3-0 Vicryl. ,Next the abdomen was copiously irrigated until clear and after adequately irrigating a #19 Jae-[place] drain was left in the pelvis as well as a tip of this aiming towards the anastomosis. The midline was closed with looped #0 PDS in a running manner and the subcutaneous tissue was approximated over a 15 Jae-[place] drain. Gilman were used to approximate the skin after copiously irrigating the midline incision as well. Isuprel was used to inject bilaterally on the fascia and the patient was awakened, extubated, brought to the recovery room awake, alert hemodynamic stable. Sponge and needle counts correct times two.
[2017-01-20 00:20] VITALS: BP 161/84
[2017-01-20] MEDS: LR 1,000 ML IV SCH ×2 (01:25→07:33)
[2017-01-20] MEDS: IPRATROPIUM 0.5MG/ALBUTEROL 2.5MG INH SOL UD 3ML (DUONEB)(J7620) NEB SCH ×4 (01:57→19:22)
[2017-01-20] MEDS: PIPERACILLIN/TAZOBACTAM SOD 3.375 GM in D5W MINI-BAG PLUS 50 ML IV SCH ×4 (03:27→19:48)
[2017-01-20 04:00] VITALS: BP 166/86
[2017-01-20 08:00] VITALS: BP 162/102
[2017-01-20] MEDS: ALVIMOPAN 12 MG CAPSULE (ENTEREG) PO SCH ×2 (08:43→21:36)
[2017-01-20] MEDS: PANTOPRAZOLE 40MG INJ (PROTONIX) (C9113) IV SCH (08:43)
[2017-01-20 10:02] LABS: MEAN CORPUSCULAR HEMOGLOBIN 29.8 pg (27.0-33.0); MEAN CORPUSCULAR HGB CONC 32.4 g/dl (32.0-36.5); MEAN CORPUSCULAR VOLUME 91.9 fl (80.0-96.0); RED CELL DISTRIBUTION WIDTH 13.7 % (11.5-14.5); WHITE BLOOD COUNT 17.4 K/mm3 (4.0-10.0)
[2017-01-20 10:15] LABS: ANION GAP 7 MEQ/L (8-16); BLOOD UREA NITROGEN 9 MG/DL (7-18); CALCIUM LEVEL 7.7 MG/DL (8.5-10.1); CARBON DIOXIDE LEVEL 27 MEQ/L (21-32); CHLORIDE LEVEL 101 MEQ/L (98-107); CREATININE FOR GFR 0.52 MG/DL (0.55-1.02); GLOMERULAR FILTRATION RATE > 60.0 (>60); GLUCOSE, FASTING 92 MG/DL (70-105); POTASSIUM SERUM 3.8 MEQ/L (3.5-5.1); SODIUM LEVEL 135 MEQ/L (136-145)
[2017-01-20 12:00] VITALS: BP 181/98
[2017-01-20] MEDS ORDERED: FUROSEMIDE 20 MG/2 ML VIAL (J1940) IV ONE (13:15)
[2017-01-20] MEDS: KETOROLAC 30 MG/ML VIAL (J1885) IV PRN ×2 (13:23→19:49)
[2017-01-20 16:00] VITALS: BP 162/85
[2017-01-20] MEDS ORDERED: FAT EMULSION IV 20% 500 ML IV SCH (18:00)
[2017-01-20] MEDS: AMINO AC/ELECTROLYTE/DEX/CALC 1,000 ML IV SCH (18:12)
[2017-01-20] MEDS: NS 1,000 ML IV SCH (18:37)
[2017-01-20 20:00] VITALS: BP 183/107
[2017-01-20] MEDS: ACETAMINOPHEN TAB 650MG DOSE (2X325MG) PO PRN (20:12)
[2017-01-21 00:15] VITALS: BP 151/93
[2017-01-21] MEDS: IPRATROPIUM 0.5MG/ALBUTEROL 2.5MG INH SOL UD 3ML (DUONEB)(J7620) NEB SCH ×3 (02:40→13:10)
[2017-01-21] MEDS: PIPERACILLIN/TAZOBACTAM SOD 3.375 GM in D5W MINI-BAG PLUS 50 ML IV SCH ×4 (02:47→20:10)
[2017-01-21] MEDS: KETOROLAC 30 MG/ML VIAL (J1885) IV PRN ×2 (02:51→19:01)
[2017-01-21 04:00] VITALS: BP 151/84
[2017-01-21] MEDS: AMINO AC/ELECTROLYTE/DEX/CALC 1,000 ML IV SCH ×2 (06:45→18:30)
[2017-01-21 07:23] LABS: MEAN CORPUSCULAR HEMOGLOBIN 30.7 pg (27.0-33.0); MEAN CORPUSCULAR HGB CONC 33.3 g/dl (32.0-36.5); MEAN CORPUSCULAR VOLUME 92.1 fl (80.0-96.0); RED CELL DISTRIBUTION WIDTH 13.7 % (11.5-14.5); WHITE BLOOD COUNT 13.8 K/mm3 (4.0-10.0)
[2017-01-21 07:39] LABS: ANION GAP 7 MEQ/L (8-16); BLOOD UREA NITROGEN 9 MG/DL (7-18); CARBON DIOXIDE LEVEL 28 MEQ/L (21-32); CHLORIDE LEVEL 99 MEQ/L (98-107); CREATININE FOR GFR 0.62 MG/DL (0.55-1.02); GLOMERULAR FILTRATION RATE > 60.0 (>60); GLUCOSE, FASTING 138 MG/DL (70-105); POTASSIUM SERUM 3.5 MEQ/L (3.5-5.1); SODIUM LEVEL 134 MEQ/L (136-145)
[2017-01-21 08:30] VITALS: BP 138/81
--- NOTE | 2017-01-21 10:11 | IPNPDOC ---
Subjective General Date/Time Seen The patient was seen on 01/21/17 at 10:03. Subject Chief Complaint/History The patient is a 41-year-old female admitted with a reason for visit of Small Bowel Obstruction. POD2 Ex-lap, small bowel resection, Last night had a febrile episode, at the same time noted to be hypertensive. BP this morning much better. No further febrile episodes. Patient reports feeling fairly comfortable. Denies nausea, shortness of breath, chest pain. No flatus yet. Current Medications Current Medications Current Medications Acetaminophen (Tylenol Tab) 650 mg Q4HP PRN PO TEMP => 100.5 Last administered on 01/20/17 20:12; Start 01/16/17 at 21:00; Stop 02/15/17 at 20:59 Albuterol/ Ipratropium (Duoneb (Ipr 0.5mg/Alb 2.5mg)) 3 ml Q2HP PRN NEB SOB/ WHEEZING; Start 01/17/17 at 14:30; Stop 02/16/17 at 14:29 Albuterol/ Ipratropium (Duoneb (Ipr 0.5mg/Alb 2.5mg)) 3 ml RQ6H NEB Last administered on 01/21/17 07:11; Start 01/17/17 at 14:00; Stop 02/16/17 at 13:59 Alvimopan (Entereg) 12 mg BID PO Last administered on 01/20/17 21:36; Start at 21:00; Stop 01/26/17 at 20:59 Amino Ac/Electrol/ Dextrose/Calcium 1,000 ml @ 75 mls/hr [id number] IV Last administered on 01/21/17 06:45; Start 01/20/17 at 18:00; Stop 02/19/17 at 17:59 Diphenhydramine HCl (Benadryl) 12.5 mg Q4HP PRN IV ITCHING; Start 01/19/17 at 17:45; Stop 02/18/17 at 17:44 Fat Emulsion Intravenous 500 ml @ 20 mls/hr ONCE@1800 IV Last administered on 01/20/17 18:11; Start 01/20/17 at 18:00; Stop 01/21/17 at 17:59 Fentanyl Citrate (Sublimaze) 25 mcg Q5MP PRN IV MODERATE PAIN (PS 4-7) Last administered on 01/19/17 18:25; Start 01/19/17 at 18:15; Stop 01/19/17 at 19:15 ; Status DC Home Med (Med Rec Complete!) ASDIRECTED XX ; Start 01/15/17 at 02:45; Stop at 02:56; Status DC Hydralazine HCl (Apresoline) 5 mg ASDIRECTED IV ; Start 01/19/17 at 19:00; Stop 01/19/17 at 20:00; Status DC Ketorolac Tromethamine (ToRADol) 30 mg Q6H PRN IV PAIN Last administered on 02:51; Start 01/20/17 at 13:00; Stop 01/25/17 at 12:59 Ketorolac Tromethamine (ToRADol) 30 mg Q6HP PRN IV MILD/MODERATE PAIN (PS 1-7) Last administered on 01/19/17 21:33; Start 01/15/17 at 11:00; Stop 01/20/17 at 10:59; Status DC Lactated Ringer's 1,000 ml @ 50 mls/hr Q20H IV Last administered on 01/20/17 07:33; Start 01/15/17 at 04:45; Stop 01/20/17 at 12:58; Status DC Lactated Ringer's 1,000 ml @ 80 mls/hr [id number] IV Last administered on 18:15; Start 01/19/17 at 18:15; Stop 01/19/17 at 19:15; Status DC Metoclopramide HCl (REGLAN INJection) 10 mg Q6HP PRN IV NAUSEA OR VOMITING Last administered on 01/17/17 13:03; Start 01/15/17 at 11:00; Stop 02/14/17 at 10:59 Morphine Sulfate (Morphine Sulfate In 0.9%Nacl Iv Bag) Concentration 1 mg/ml ASDIRECTED PRN IV SEE LABEL COMMENTS; Start 01/19/17 at 17:45; Stop 01/26/17 at 17:44 Morphine Sulfate (Morphine Sulfate Inj) 2 mg Q2HP PRN IV PAIN Last administered on 01/19/17 13:39; Start 01/15/17 at 04:45; Stop 01/19/17 at 17:38 ; Status DC Morphine Sulfate (Morphine Sulfate Inj) 2 mg Q5MP PRN IV MODERATE/SEVERE PAIN ( PS 7-10); Start 01/19/17 at 18:15; Stop 01/19/17 at 19:15; Status DC Nalbuphine HCl (Nubain) 2.5 mg Q6HP PRN IV PRURITIS; Start 01/19/17 at 17:45; Stop 01/26/17 at 17:44 Naloxone HCl (Narcan) 0.1 mg Q5MP PRN IV SEE LABEL COMMENTS; Start 01/19/17 at 17:45; Stop 02/18/17 at 17:44 Non-Formulary Medication (Epidural/BUCKET PUSHER [place]) USE THIS ENTRY TO VEND ... Q1M PRN XX SEE LABEL COMMENTS; Start 01/19/17 at 17:45; Stop 02/18/17 at 17:44 Ondansetron HCl (ZOFRAN INJection) 4 mg Q4HP PRN IV NAUSEA OR VOMITING Last administered on 01/15/17 07:57; Start 01/15/17 at 04:45; Stop 01/15/17 at 11:07 ; Status DC Ondansetron HCl (ZOFRAN INJection) 4 mg Q4HP PRN IV NAUSEA OR VOMITING; Start 01/19/17 at 18:15; Stop 01/19/17 at 19:15; Status DC Ondansetron HCl (ZOFRAN INJection) 4 mg Q6HP PRN IV NAUSEA OR VOMITING Last administered on 01/17/17 23:40; Start 01/15/17 at 11:00; Stop 02/14/17 at 10:59 ; Status Future hold Ondansetron HCl (ZOFRAN INJection) 4 mg Q6HP PRN IV NAUSEA; Start 01/19/17 at 17:45; Stop 02/18/17 at 17:44; Status Cancel Pantoprazole Sodium (Protonix) 40 mg DAILY IV Last administered on 01/20/17 08 :43; Start 01/18/17 at 09:00; Stop 02/17/17 at 08:59 Piperacillin Sod/ Tazobactam Sod 3.375 gm/Dextrose 50 ml @ 50 mls/hr Q6H IV Last administered on 01/21/17 08:58; Start 01/17/17 at 08:00; Stop 01/24/17 at 07:59 Promethazine HCl (PHENERGAN INJection) 12.5 mg Q6HP PRN IV NAUSEA; Start at 11:00; Stop 02/14/17 at 10:59 Sodium Chloride 1,000 ml @ 15 mls/hr Q24H IV ; Start 01/19/17 at 17:36; Stop at 17:35; Status Future hold Zolpidem Tartrate (Ambien) 5 mg QHSP PRN PO SLEEP Last administered on t 21:26; Start 01/16/17 at 21:00; Stop 01/16/17 at 21:35; Status DC Allergies Coded Allergies: No Known Allergies (Unverified , 01/11/17) Objective Physical Examination Examination GENERAL APPEARANCE:Patient seen, laying in bed, awake, alert, and oriented. Looks fairly comfortable. SKIN: Warm and dry. HEENT: Normocephalic, atraumatic. [place] palpebral conjunctiva, anicteric sclerae. Lips and mucosa dry. NGT in place. . NECK: Supple, no thyromegaly. No obvious jugular venous distention. LUNGS: slight decreased breath sounds, basal area. HEART: No chest wall abnormalities. Regular rate and rhythm with no murmurs appreciated. ABDOMEN: Abdomen is distended, quiet, soft, dressings intact. DRAKE drain with light colored serosanguenous fluid. appropriately tender at incision site.. EXTREMITIES: mild edema of lower extemities.. Vital Signs Vital Signs Date Time Temp Pulse Resp B/P (MAP) Pulse Ox O2 Delivery O2 Flow Rate FiO2 01/21/17 08:30 98.5 115 16 138/81 (100) 97 Room Air 01/19/17 18:30 2 Tmax 101.1 last night I&Os I&O- Last 24 Hours up to 6 AM 01/21/17 06:00 Intake Total 3326.5 ml Output Total 5662 ml Balance -2335.5 ml She is negative 2 L yesterday and so far negative 1L. Laboratory Data Labs 24H Laboratory Tests 2 01/21/17 07:11: Anion Gap 7L, Glomerular Filtration Rate > 60.0, Blood Urea Nitrogen 9, Creatinine 0.62, Sodium Level 134L, Potassium Level 3.5, Chloride Level 99, Carbon Dioxide Level 28, Calcium Level 8.0L CBC/BMP Laboratory Tests 01/21/17 07:11 Red Blood Count 3.10 L, Mean Corpuscular Volume 92.1, Mean Corpuscular Hemoglobin 30.7, Mean Corpuscular Hemoglobin Concent 33.3, Red Cell Distribution Width 13.7, Calcium Level 8.0 L Impression POD2 Exploratory Laparotomy, Small bowel resectiion for perforation, localized. She reponded well to the diuresis yesterday. Her BP is better. I will give her one more dose of lasix. Her abdomen remains distended, no bowel functions yet. continue with NGT decompression, NPO, TPN. Keep joseph today. I advised her to get up on the chair, try and ambulate, and do incentive spirometers Continue with zosyn BUCKET PUSHER morphine for pain control DVT prophylaxis. Plan / VTE VTE Prophylaxis Ordered?: Yes Plan / Urinary Catheter Reason for insertion/continuin: Perioperative GEORGIA JAEGER MD Jan 21, 2017 10:11
[2017-01-21] MEDS: ALVIMOPAN 12 MG CAPSULE (ENTEREG) PO SCH ×2 (10:26→20:10)
[2017-01-21] MEDS: PANTOPRAZOLE 40MG INJ (PROTONIX) (C9113) IV SCH (10:27)
[2017-01-21 13:20] VITALS: BP 150/93
[2017-01-21] MEDS: ACETAMINOPHEN TAB 650MG DOSE (2X325MG) PO PRN (13:27)
[2017-01-21 18:00] VITALS: BP 143/86
[2017-01-21] MEDS ORDERED: FAT EMULSION IV 20% 500 ML IV SCH (18:00)
[2017-01-21] MEDS: NS 1,000 ML IV SCH (18:29)
[2017-01-21 20:00] VITALS: BP 153/90
[2017-01-21] MEDS: ONDANSETRON 4MG/2ML VIAL (J2405) IV PRN (22:50)
[2017-01-22] VITALS: BP 143/75
[2017-01-22] MEDS: PIPERACILLIN/TAZOBACTAM SOD 3.375 GM in D5W MINI-BAG PLUS 50 ML IV SCH ×4 (02:17→20:34)
[2017-01-22] MEDS: KETOROLAC 30 MG/ML VIAL (J1885) IV PRN ×3 (03:58→22:01)
[2017-01-22 04:00] VITALS: BP 128/72
[2017-01-22 06:46] LABS: MEAN CORPUSCULAR HEMOGLOBIN 31.1 pg (27.0-33.0); MEAN CORPUSCULAR HGB CONC 33.7 g/dl (32.0-36.5); MEAN CORPUSCULAR VOLUME 92.2 fl (80.0-96.0); RED CELL DISTRIBUTION WIDTH 13.6 % (11.5-14.5); WHITE BLOOD COUNT 12.7 K/mm3 (4.0-10.0)
[2017-01-22 07:08] LABS: ANION GAP 7 MEQ/L (8-16); BLOOD UREA NITROGEN 8 MG/DL (7-18); CALCIUM LEVEL 8.3 MG/DL (8.5-10.1); CARBON DIOXIDE LEVEL 29 MEQ/L (21-32); CHLORIDE LEVEL 103 MEQ/L (98-107); CREATININE FOR GFR 0.62 MG/DL (0.55-1.02); GLOMERULAR FILTRATION RATE > 60.0 (>60); GLUCOSE, FASTING 118 MG/DL (70-105); POTASSIUM SERUM 3.8 MEQ/L (3.5-5.1); SODIUM LEVEL 139 MEQ/L (136-145)
[2017-01-22] MEDS: AMINO AC/ELECTROLYTE/DEX/CALC 1,000 ML IV SCH ×2 (08:41→18:19)
[2017-01-22] MEDS: ALVIMOPAN 12 MG CAPSULE (ENTEREG) PO SCH ×2 (08:41→22:01)
[2017-01-22] MEDS: PANTOPRAZOLE 40MG INJ (PROTONIX) (C9113) IV SCH (08:41)
[2017-01-22 08:47] VITALS: BP 145/85
--- NOTE | 2017-01-22 10:25 | IPNPDOC ---
Subjective General Date/Time Seen The patient was seen on 01/22/17 at 10:22. Subject Chief Complaint/History The patient is a 41-year-old female admitted with a reason for visit of Small Bowel Obstruction. Patient reports feeling mildly better. Not passing any gas or flatus yet. Denies nausea or vomiting. She still has a few episodes of low- grade fever yesterday. Current Medications Current Medications Current Medications Acetaminophen (Tylenol Tab) 650 mg Q4HP PRN PO TEMP => 100.5 Last administered on 01/21/17 13:27; Start 01/16/17 at 21:00; Stop 02/15/17 at 20:59 Albuterol/ Ipratropium (Duoneb (Ipr 0.5mg/Alb 2.5mg)) 3 ml Q2HP PRN NEB SOB/ WHEEZING; Start 01/17/17 at 14:30; Stop 02/16/17 at 14:29 Albuterol/ Ipratropium (Duoneb (Ipr 0.5mg/Alb 2.5mg)) 3 ml RQ6H NEB Last administered on 01/21/17 13:10; Start 01/17/17 at 14:00; Stop 01/21/17 at 14:58 ; Status DC Alvimopan (Entereg) 12 mg BID PO Last administered on 01/22/17 08:41; Start at 21:00; Stop 01/26/17 at 20:59 Amino Ac/Electrol/ Dextrose/Calcium 1,000 ml @ 75 mls/hr [id number] IV Last administered on 01/22/17 08:41; Start 01/20/17 at 18:00; Stop 02/19/17 at 17:59 Diphenhydramine HCl (Benadryl) 12.5 mg Q4HP PRN IV ITCHING; Start 01/19/17 at 17:45; Stop 02/18/17 at 17:44 Fat Emulsion Intravenous 500 ml @ 20 mls/hr ONCE@1800 IV Last administered on 01/20/17 18:11; Start 01/20/17 at 18:00; Stop 01/21/17 at 17:59; Status DC Fat Emulsion Intravenous 500 ml @ 20 mls/hr ONCE@1800 IV Last administered on 01/21/17 18:32; Start 01/21/17 at 18:00; Stop 01/22/17 at 17:59 Fentanyl Citrate (Sublimaze) 25 mcg Q5MP PRN IV MODERATE PAIN (PS 4-7) Last administered on 01/19/17 18:25; Start 01/19/17 at 18:15; Stop 01/19/17 at 19:15 ; Status DC Home Med (Med Rec Complete!) ASDIRECTED XX ; Start 01/15/17 at 02:45; Stop at 02:56; Status DC Hydralazine HCl (Apresoline) 5 mg ASDIRECTED IV ; Start 01/19/17 at 19:00; Stop 01/19/17 at 20:00; Status DC Ketorolac Tromethamine (ToRADol) 30 mg Q6H PRN IV PAIN Last administered on 03:58; Start 01/20/17 at 13:00; Stop 01/25/17 at 12:59 Ketorolac Tromethamine (ToRADol) 30 mg Q6HP PRN IV MILD/MODERATE PAIN (PS 1-7) Last administered on 01/19/17 21:33; Start 01/15/17 at 11:00; Stop 01/20/17 at 10:59; Status DC Lactated Ringer's 1,000 ml @ 50 mls/hr Q20H IV Last administered on 01/20/17 07:33; Start 01/15/17 at 04:45; Stop 01/20/17 at 12:58; Status DC Lactated Ringer's 1,000 ml @ 80 mls/hr [id number] IV Last administered on 18:15; Start 01/19/17 at 18:15; Stop 01/19/17 at 19:15; Status DC Metoclopramide HCl (REGLAN INJection) 10 mg Q6HP PRN IV NAUSEA OR VOMITING Last administered on 01/17/17 13:03; Start 01/15/17 at 11:00; Stop 02/14/17 at 10:59 Morphine Sulfate (Morphine Sulfate In 0.9%Nacl Iv Bag) Concentration 1 mg/ml ASDIRECTED PRN IV SEE LABEL COMMENTS Last administered on 01/21/17 14:27; Start 01/19/17 at 17:45; Stop 01/26/17 at 17:44 Morphine Sulfate (Morphine Sulfate Inj) 2 mg Q2HP PRN IV PAIN Last administered on 01/19/17t 13:39; Start 01/15/17 at 04:45; Stop 01/19/17 at 17:38 ; Status DC Morphine Sulfate (Morphine Sulfate Inj) 2 mg Q5MP PRN IV MODERATE/SEVERE PAIN ( PS 7-10); Start 01/19/17 at 18:15; Stop 01/19/17 at 19:15; Status DC Nalbuphine HCl (Nubain) 2.5 mg Q6HP PRN IV PRURITIS; Start 01/19/17 at 17:45; Stop 01/26/17 at 17:44 Naloxone HCl (Narcan) 0.1 mg Q5MP PRN IV SEE LABEL COMMENTS; Start 01/19/17 at 17:45; Stop 02/18/17 at 17:44 Non-Formulary Medication (Epidural/RACE RELATIONS PROFESSOR [place]) USE THIS ENTRY TO VEND ... Q1M PRN XX SEE LABEL COMMENTS; Start 01/19/17 at 17:45; Stop 02/18/17 at 17:44 Ondansetron HCl (ZOFRAN INJection) 4 mg Q4HP PRN IV NAUSEA OR VOMITING Last administered on 01/15/17 07:57; Start 01/15/17 at 04:45; Stop 01/15/17 at 11:07 ; Status DC Ondansetron HCl (ZOFRAN INJection) 4 mg Q4HP PRN IV NAUSEA OR VOMITING; Start 01/19/17 at 18:15; Stop 01/19/17 at 19:15; Status DC Ondansetron HCl (ZOFRAN INJection) 4 mg Q6HP PRN IV NAUSEA OR VOMITING Last administered on 01/21/17 22:50; Start 01/15/17 at 11:00; Stop 02/14/17 at 10:59 ; Status Future hold Ondansetron HCl (ZOFRAN INJection) 4 mg Q6HP PRN IV NAUSEA; Start 01/19/17 at 17:45; Stop 02/18/17 at 17:44; Status Cancel Pantoprazole Sodium (Protonix) 40 mg DAILY IV Last administered on 01/22/17 08 :41; Start 01/18/17 at 09:00; Stop 02/17/17 at 08:59 Piperacillin Sod/ Tazobactam Sod 3.375 gm/Dextrose 50 ml @ 50 mls/hr Q6H IV Last administered on 01/22/17 08:41; Start 01/17/17 at 08:00; Stop 01/24/17 at 07:59 Promethazine HCl (PHENERGAN INJection) 12.5 mg Q6HP PRN IV NAUSEA; Start at 11:00; Stop 02/14/17 at 10:59 Sodium Chloride 1,000 ml @ 15 mls/hr Q24H IV Last administered on 01/21/17 18 :29; Start 01/19/17 at 17:36; Stop 02/18/17 at 17:35; Status Future hold Zolpidem Tartrate (Ambien) 5 mg QHSP PRN PO SLEEP Last administered on 21:26; Start 01/16/17 at 21:00; Stop 01/16/17 at 21:35; Status DC Allergies Coded Allergies: No Known Allergies (Unverified , 01/11/17) Objective Physical Examination Examination GENERAL APPEARANCE:Patient seen, laying in bed, awake, alert, and oriented. Comfortable, in no acute distress. SKIN: Warm and moist. HEENT: Normocephalic, atraumatic. [place] palpebral conjunctiva, anicteric sclerae. Lips and mucosa appear moist. NECK: Supple, no thyromegaly. No obvious jugular venous distention. LUNGS: Clear to auscultation bilaterally. No wheezing appreciated. HEART: No chest wall abnormalities. Regular rate and rhythm with no murmurs appreciated. ABDOMEN: Abdomen remains distended, tympanitic to percussion, relatively quiet bowel sounds. The postoperative dressings were removed. She has an infraumbilical vertical incision with concetta. Wound appears dry. 2 DRAKE drains in the abdomen draining light pink serosanguineous fluid. EXTREMITIES: Mild edema Vital Signs Vital Signs Date Time Temp Pulse Resp B/P (MAP) Pulse Ox O2 Delivery O2 Flow Rate FiO2 01/22/17 08:47 99.6 94 16 145/85 (105) 99 Room Air 01/19/17 18:30 2 I&Os I&O- Last 24 Hours up to 6 AM 01/22/17 06:00 Intake Total 1640 ml Output Total 4625 ml Balance -2985 ml Laboratory Data Labs 24H Laboratory Tests 2 01/22/17 06:11: Anion Gap 7L, Glomerular Filtration Rate > 60.0, Blood Urea Nitrogen 8, Creatinine 0.62, Sodium Level 139, Potassium Level 3.8, Chloride Level 103, Carbon Dioxide Level 29, Calcium Level 8.3L CBC/BMP Laboratory Tests 01/22/17 06:11 Red Blood Count 2.99 L, Mean Corpuscular Volume 92.2, Mean Corpuscular Hemoglobin 31.1, Mean Corpuscular Hemoglobin Concent 33.7, Red Cell Distribution Width 13.6, Calcium Level 8.3 L Impression Postop day 3 after abdominal exploration, small bowel resection We will discontinue the Quintero catheter. Patient has ambulated yesterday and this will help her ambulate easier. We will clamp the NG tube and see if she tolerates this. Continue with current antibiotics. Plan / VTE VTE Prophylaxis Ordered?: Yes Plan / Urinary Catheter Reason for insertion/continuin: Perioperative GEORGIA JAEGER MD Jan 22, 2017 10:25
[2017-01-22 12:00] VITALS: BP 136/81
[2017-01-22 18:00] VITALS: BP 128/78
[2017-01-22] MEDS ORDERED: FAT EMULSION IV 20% 500 ML IV SCH (18:00)
[2017-01-22 20:00] VITALS: BP 149/86
[2017-01-22] MEDS: NS 1,000 ML IV SCH (20:34)
[2017-01-22] MEDS: ACETAMINOPHEN TAB 650MG DOSE (2X325MG) PO PRN (20:40)
[2017-01-23] VITALS: BP 127/65
[2017-01-23] MEDS: PIPERACILLIN/TAZOBACTAM SOD 3.375 GM in D5W MINI-BAG PLUS 50 ML IV SCH ×3 (01:56→13:59)
[2017-01-23 04:00] VITALS: BP 143/81
[2017-01-23] MEDS: KETOROLAC 30 MG/ML VIAL (J1885) IV PRN ×2 (04:28→10:31)
[2017-01-23 07:03] LABS: MEAN CORPUSCULAR HEMOGLOBIN 30.7 pg (27.0-33.0); MEAN CORPUSCULAR HGB CONC 33.4 g/dl (32.0-36.5); RED CELL DISTRIBUTION WIDTH 13.7 % (11.5-14.5); WHITE BLOOD COUNT 11.4 K/mm3 (4.0-10.0)
[2017-01-23 07:25] LABS: ANION GAP 7 MEQ/L (8-16); BLOOD UREA NITROGEN 10 MG/DL (7-18); CALCIUM LEVEL 8.6 MG/DL (8.5-10.1); CARBON DIOXIDE LEVEL 28 MEQ/L (21-32); CHLORIDE LEVEL 102 MEQ/L (98-107); CREATININE FOR GFR 0.59 MG/DL (0.55-1.02); GLOMERULAR FILTRATION RATE > 60.0 (>60); GLUCOSE, FASTING 118 MG/DL (70-105); POTASSIUM SERUM 3.8 MEQ/L (3.5-5.1); SODIUM LEVEL 137 MEQ/L (136-145)
[2017-01-23 08:00] VITALS: BP 135/67
[2017-01-23] MEDS: AMINO AC/ELECTROLYTE/DEX/CALC 1,000 ML IV SCH (08:57)
[2017-01-23] MEDS: ALVIMOPAN 12 MG CAPSULE (ENTEREG) PO SCH ×2 (09:10→20:37)
[2017-01-23] MEDS: PANTOPRAZOLE 40MG INJ (PROTONIX) (C9113) IV SCH (09:10)
[2017-01-23 12:00] VITALS: BP 134/82
[2017-01-23] MEDS ORDERED: MORPHINE 2 MG/ML 1ML SYRINGE IV PRN (12:15)
[2017-01-23] MEDS ORDERED: NORCO, ANEXSIA 5/325MG TABLET (HYDROcodone/ACETAMINOPHEN) PO PRN (12:15)
[2017-01-23 16:00] VITALS: BP 147/67
[2017-01-23] MEDS: KETOROLAC TROMETHAMINE 10 MG TAB PO PRN (18:21)
[2017-01-23] MEDS: CIPROFLOXACIN 500 MG TAB PO SCH (18:21)
[2017-01-23 20:00] VITALS: BP 127/74
[2017-01-23] MEDS: NORCO, ANEXSIA 5/325MG TABLET (HYDROcodone/ACETAMINOPHEN) PO PRN (20:36)
[2017-01-24] VITALS: BP 132/80
[2017-01-24] MEDS: NORCO, ANEXSIA 5/325MG TABLET (HYDROcodone/ACETAMINOPHEN) PO PRN ×5 (00:37→20:11)
[2017-01-24 04:00] VITALS: BP 131/87
[2017-01-24] MEDS: CIPROFLOXACIN 500 MG TAB PO SCH ×2 (05:54→18:05)
[2017-01-24 07:50] LABS: MEAN CORPUSCULAR HEMOGLOBIN 31.2 pg (27.0-33.0); MEAN CORPUSCULAR HGB CONC 33.7 g/dl (32.0-36.5); MEAN CORPUSCULAR VOLUME 92.6 fl (80.0-96.0); RED CELL DISTRIBUTION WIDTH 13.8 % (11.5-14.5); WHITE BLOOD COUNT 10.8 K/mm3 (4.0-10.0)
[2017-01-24 08:00] VITALS: BP 136/88
[2017-01-24 08:38] LABS: ANION GAP 8 MEQ/L (8-16); BLOOD UREA NITROGEN 6 MG/DL (7-18); CALCIUM LEVEL 8.4 MG/DL (8.5-10.1); CARBON DIOXIDE LEVEL 28 MEQ/L (21-32); CHLORIDE LEVEL 98 MEQ/L (98-107); CREATININE FOR GFR 0.62 MG/DL (0.55-1.02); GLOMERULAR FILTRATION RATE > 60.0 (>60); GLUCOSE, FASTING 115 MG/DL (70-105); POTASSIUM SERUM 3.8 MEQ/L (3.5-5.1); SODIUM LEVEL 134 MEQ/L (136-145)
[2017-01-24] MEDS: ALVIMOPAN 12 MG CAPSULE (ENTEREG) PO SCH ×2 (09:26→20:10)
[2017-01-24] MEDS: OMEPRAZOLE 20 MG CAP PO SCH (09:26)
[2017-01-24] MEDS: KETOROLAC TROMETHAMINE 10 MG TAB PO PRN (09:33)
[2017-01-24 12:00] VITALS: BP 118/71
[2017-01-24 16:00] VITALS: BP 134/82
[2017-01-25] VITALS: BP 127/70
[2017-01-25] MEDS: NORCO, ANEXSIA 5/325MG TABLET (HYDROcodone/ACETAMINOPHEN) PO PRN ×2 (00:16→05:27)
[2017-01-25 04:00] VITALS: BP 130/82
[2017-01-25] MEDS: CIPROFLOXACIN 500 MG TAB PO SCH (05:26)
[2017-01-25 06:56] LABS: MEAN CORPUSCULAR HEMOGLOBIN 30.2 pg (27.0-33.0); MEAN CORPUSCULAR HGB CONC 32.5 g/dl (32.0-36.5); MEAN CORPUSCULAR VOLUME 93.1 fl (80.0-96.0); RED CELL DISTRIBUTION WIDTH 13.7 % (11.5-14.5); WHITE BLOOD COUNT 10.6 K/mm3 (4.0-10.0)
[2017-01-25 07:12] LABS: ANION GAP 7 MEQ/L (8-16); BLOOD UREA NITROGEN 5 MG/DL (7-18); CALCIUM LEVEL 8.5 MG/DL (8.5-10.1); CARBON DIOXIDE LEVEL 28 MEQ/L (21-32); CHLORIDE LEVEL 98 MEQ/L (98-107); CREATININE FOR GFR 0.54 MG/DL (0.55-1.02); GLOMERULAR FILTRATION RATE > 60.0 (>60); GLUCOSE, FASTING 99 MG/DL (70-105); POTASSIUM SERUM 3.9 MEQ/L (3.5-5.1); SODIUM LEVEL 133 MEQ/L (136-145)
[2017-01-25 08:00] VITALS: BP 137/87
[2017-01-25] MEDS: OMEPRAZOLE 20 MG CAP PO SCH (08:46)
[2017-01-25] MEDS: ALVIMOPAN 12 MG CAPSULE (ENTEREG) PO SCH (08:47)
[2017-01-25] MEDS ORDERED: NORCOTAB PO (09:08)
[2017-01-25] MEDS ORDERED: KETO10TAB PO (09:08)
[2017-01-25] MEDS ORDERED: CIPR-249 PO (09:08)
--- NOTE | 2017-02-05 19:39 | DSES ---
DATE OF ADMISSION: 01/15/2017 DATE OF DISCHARGE: 01/25/2017 PRINCIPAL DIAGNOSES: 1. Small bowel obstruction. 2. Small bowel perforation number PROCEDURES PERFORMED: Exploratory laparotomy with small-bowel resection and small bowel anastomosis. HISTORY OF PRESENT ILLNESS: The patient is a 41-year-old female who went underwent diagnostic laparoscopy approximately 4 days prior to admission. She developed abdominal distension, nausea, vomiting over the last 24 hours, but really has not had a flatus since that time of the operation. She did not have any significant lysis of adhesions, more of a diagnostic laparoscopy than anything else. When she underwent an evaluation in the emergency room her white count was 7.6, she was afebrile and there was some evidence of free air with some fluid with description of most likely postoperative changes. There was somewhat of a transition point in the distal ileum. There was some concerns about possible pneumonia.. HOSPITAL COURSE SUMMARY: The patient was admitted with an ileus / possible small bowel obstruction. She was given IV fluids, nothing by mouth. The patient had some improvement of her abdominal distension and white count was normal for the first several days and then increased from the day before. Initially we had been reviewing the x-rays, and she had some slight improvement on a day to day basis when I clinically reviewed these with the patient and family. And clinically she had some improvement becoming the less distended over time. However, she had some persistent temps throughout these early few days and without the elevation of the white count we were concerned that she may be developing progressive atelectasis because of some shortness of breath issues and was started on nebulizer treatments. She was eventually taken to the operating room when we had a some significant diarrheal bowel movements on 01/18, and she stated that she was feeling much better at that time. We clamped the NG tube overnight and she felt worse the next morning on the with some increasing abdominal pain discomfort and swelling. She was taken to the operating room where she underwent a small bowel resection for a small bowel perforation. Postoperatively, she had some significant improvement over a relatively short period of time. She had a great deal of abdominal swelling which seemed to improve quite quickly. She had great urine output and eventually started having bowel movements. She was discharged home on 01/25 tolerating regular diet, had good pain control with minimal pain medications, i.e. [place] and was continued on Cipro postoperatively as well as some intermittent Toradol as needed for pain. She was also continued on her usual medication, which included Zoloft. She was instructed to follow up in my office for staple removal on 01/30 and then to follow up with myself on 02/08 for reevaluation.
== END 2017-01-25 11:45 | disposition home or self-care (01) | DRG 329 ==
LOC: M ED 20:40 → EDBD 20:40 → M ED INP 01-15 04:13 → M PED 01-15 05:20
PROVIDERS: ADMIT Surgery; ATTEND Surgery
PROC: 0DT80ZZ Resection of Small Intestine, Open Approach (ICD-10-PCS; principal; 2017-01-19 12:39)
DX: K56.60 Unspecified intestinal obstruction (principal); K63.1 Perforation of intestine (nontraumatic); J98.11 Atelectasis; D25.9 Leiomyoma of uterus, unspecified; N97.9 Female infertility, unspecified

== ENCOUNTER 2017-01-27 17:31 | Emergency (ER) | payer OTHER ==
[~2017-01-27] VITALS: Ht 165.1 cm; Wt 76.8 kg
[~2017-01-27 17:31] MED LIST changes: +CIPR-249 PO; +IBUP1TAB7 PO; +KETO10TAB PO; +MOTR200T44 PO; +NORCOTAB PO; +OXYC1TAB23 PO
[2017-01-27] MEDS ORDERED: KETOROLAC 30 MG/ML VIAL (J1885) IV ONE (19:00)
--- NOTE | 2017-01-27 20:08 | REP ---
HISTORY: Right-sided chest pain. COMPARISON: 01/19/2017 Subtle patchy opacities are again seen in the right lower lobe. The free air beneath the diaphragmatic surface of the right lung seen on the prior exam has resolved. The lung woo are otherwise clear. Subtle left basilar opacities have cleared. The cardiomediastinal silhouette is unchanged. Mild cardiomegaly cannot be ruled out. There is no change in the osseous structures. IMPRESSION: Right basilar opacity suspicious for pneumonia, which needs to be correlated clinically with appropriate followup. Signed by Dewayne Garrett DO 01/28/2017 10:37 A
[2017-01-27 20:56] LABS: BASO % 0.3 % (0.0-1.0); EOS # 0.2 K/mm3 (0.0-0.50); EOS % 2.1 % (0.0-3.0); LARGE UNSTAINED CELL # 0.1 K/mm3 (0.0-0.4); LARGE UNSTAINED CELL % 1.3 % (0.0-4.0); LYMPH # 1.3 K/mm3 (1.5-4.5); LYMPH % 14.7 % (24.0-44.0); MEAN CORPUSCULAR HEMOGLOBIN 30.1 pg (27.0-33.0); MEAN CORPUSCULAR HGB CONC 32.6 g/dl (32.0-36.5); MEAN CORPUSCULAR VOLUME 92.2 fl (80.0-96.0); MONO # 0.3 K/mm3 (0.0-0.8); MONO % 3.5 % (0.0-5.0); NEUTROPHILS # 6.4 K/mm3 (1.8-7.7); NEUTROPHILS % 78.2 % (36.0-66.0); PLATELET COUNT, AUTOMATED 594 k/mm3 (150-450); RED CELL DISTRIBUTION WIDTH 13.5 % (11.5-14.5); WHITE BLOOD COUNT 8.1 K/mm3 (4.0-10.0)
[2017-01-27 21:19] LABS: ERYTHROCYTE SEDIMENTATION RATE 108 mm/hr (0-20)
[2017-01-27 21:36] LABS: ANION GAP 8 MEQ/L (8-16); BLOOD UREA NITROGEN 4 MG/DL (7-18); CALCIUM LEVEL 8.6 MG/DL (8.5-10.1); CARBON DIOXIDE LEVEL 27 MEQ/L (21-32); CHLORIDE LEVEL 103 MEQ/L (98-107); CREATININE FOR GFR 0.65 MG/DL (0.55-1.02); GLOMERULAR FILTRATION RATE > 60.0 (>60); GLUCOSE, FASTING 84 MG/DL (70-105); POTASSIUM SERUM 4.5 MEQ/L (3.5-5.1); SODIUM LEVEL 138 MEQ/L (136-145)
[2017-01-27] MEDS ORDERED: ZITHTAB PO (22:20)
[2017-01-27 22:25] VITALS: BP 129/73
== END 2017-01-27 22:47 | disposition home or self-care (01) ==
LOC: M ED 19:15
DX: J18.9 Pneumonia, unspecified organism (principal); R07.89 Other chest pain; Z98.890 Other specified postprocedural states; F41.9 Anxiety disorder, unspecified; F32.9 Major depressive disorder, single episode, unspecified; Z79.899 Other long term (current) drug therapy; Z79.2 Long term (current) use of antibiotics
CPT/HCPCS: 36415; 71020; 80048; 83605; 85025; 85652; 86140; 96374; 99283; J1885

== ENCOUNTER → 2018-03-20 | Outpatient (REF) | payer OTHER | LOC: M SFHCLERA 19:01 | DX: N89.8 Other specified noninflammatory disorders of vagina (principal); M54.5 Low back pain ==

== ENCOUNTER 2018-07-21 10:02 | Emergency (ER) | payer OTHER ==
[~2018-07-21] VITALS: Ht 165.1 cm; Wt 72.7 kg
[~2018-07-21 10:02] MED LIST changes: +ACET500T15 PO; -ACET50TAOT PO; +NAPR-50 PO; -NAPR500T PO; +ZITHTAB PO
[2018-07-21] MEDS ORDERED: IBUPROFEN 800 MG TAB PO ONE (10:45)
[2018-07-21 12:01] VITALS: BP 119/71
[2018-07-21] MEDS ORDERED: IBUP80TA PO (12:35)
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
== END 2018-07-21 12:46 | disposition home or self-care (01) ==
LOC: M ED 10:02
DX: S16.1XXA Strain of muscle, fascia and tendon at neck level, initial encounter (principal); V49.40XA Driver injured in collision with unspecified motor vehicles in traffic accident, initial encounter; Y92.410 Unspecified street and highway as the place of occurrence of the external cause; M79.602 Pain in left arm; F41.9 Anxiety disorder, unspecified; F32.9 Major depressive disorder, single episode, unspecified; E78.5 Hyperlipidemia, unspecified; G43.909 Migraine, unspecified, not intractable, without status migrainosus; N97.9 Female infertility, unspecified; M54.30 Sciatica, unspecified side; Z87.19 Personal history of other diseases of the digestive system; Z90.49 Acquired absence of other specified parts of digestive tract

== ENCOUNTER → 2018-09-07 | Outpatient (CLI) | payer OTHER ==
[~2018-09-07] MED LIST changes: +IBUP80TA PO
--- NOTE | 2018-09-07 17:28 | REPMRS ---
Patient History The patient states she has not had a clinical breast exam in over a year. Patient is nulliparous. Family history of breast cancer in sister, unknown cancer in sister, unknown cancer in maternal grandfather. Digital Mammo Screening Bilat: September 07, 2018 - Exam #: [id number] Bilateral CC and MLO view(s) were taken. Technologist: Agueda Dietz, Technologist FINDINGS: The breast tissue is heterogeneously dense. This may lower the sensitivity of mammography. There is no evidence of cancer on this mammogram. Assessment: BI-RADS/ACR category 2 mammogram. Benign Findings. Recommendation Routine screening mammogram of both breasts in 1 year (for women over age 40). This mammogram was interpreted with the aid of an FDA-approved computer-aided dectection system. THE LIFETIME RISK OF BREAST CANCER IS 30.7%, THEREFORE SUPPLEMENTAL SCREENING MRI OF THE BREASTS IS RECOMMENDED. Electronically Signed By: Justo Bauer MD 09/07/18 [id number]
== END ==
LOC: MERGE 11:30 → M RAD 13:37
PROVIDERS: ATTEND Internal Medicine
DX: Z12.31 Encounter for screening mammogram for malignant neoplasm of breast (principal); Z80.3 Family history of malignant neoplasm of breast

== ENCOUNTER 2019-06-08 07:50 | Emergency (ER) | payer OTHER ==
[~2019-06-08] VITALS: Ht 165.1 cm; Wt 75.5 kg
[~2019-06-08 07:50] MED LIST changes: +HYDR-3715 PO; -NAPR-50 PO; +NAPR-837 PO; -NORCOTAB PO
[2019-06-08 08:19] LABS: BASO % 0.6 % (0.0-1.0); EOS # 0.3 10^3/uL (0.0-0.5); EOS % 4.9 % (0.0-3.0); HEMATOCRIT 38.1 % (36.0-47.0); HEMOGLOBIN 12.3 g/dl (12.0-15.5); LYMPH # 1.6 10^3/uL (1.5-5.0); LYMPH % 24.6 % (24.0-44.0); MEAN CORPUSCULAR HEMOGLOBIN 29.6 pg (27.0-33.0); MEAN CORPUSCULAR HGB CONC 32.3 g/dl (32.0-36.5); MEAN CORPUSCULAR VOLUME 91.8 fl (80.0-96.0); MONO # 0.4 10^3/uL (0.0-0.8); MONO % 6.8 % (0.0-5.0); NEUTROPHILS # 4.1 10^3/uL (1.5-8.5); NEUTROPHILS % 62.9 % (36.0-66.0); PLATELET COUNT, AUTOMATED 215 10^3/uL (150-450); RED BLOOD COUNT 4.15 10^6/uL (4.00-5.40); WHITE BLOOD COUNT 6.5 10^3/uL (4.0-10.0)
[2019-06-08] MEDS ORDERED: FEXO-15 PO (08:20)
[2019-06-08] MEDS ORDERED: CRES20TA2 PO (08:20)
[2019-06-08 08:45] LABS: ALT/SGPT 29 U/L (12-78); AMYLASE 87 U/L (25-115); BILIRUBIN,DIRECT 0.1 MG/DL (0.0-0.2); BILIRUBIN,TOTAL 0.3 MG/DL (0.2-1.0); BLOOD UREA NITROGEN 9 MG/DL (7-18); CALCIUM LEVEL 8.7 MG/DL (8.5-10.1); CARBON DIOXIDE LEVEL 27 MEQ/L (21-32); CHLORIDE LEVEL 108 MEQ/L (98-107); CK-MB VALUE MASS < 1.0 NG/ML (<3.6); CPK CREATINE PHOSPHOKINASE 355 U/L (26-192); CREATININE FOR GFR 0.86 MG/DL (0.55-1.30); GLOMERULAR FILTRATION RATE > 60.0 (>58); GLUCOSE, FASTING 98 MG/DL (70-100); LIPASE 185 U/L (73-393); MB/CK RELATIVE INDEX 0.28 (< OR =4); POTASSIUM SERUM 4.3 MEQ/L (3.5-5.1); SODIUM LEVEL 141 MEQ/L (136-145); TOTAL PROTEIN 6.9 GM/DL (6.4-8.2); TROPONIN I < 0.02 NG/ML (< 0.10)
--- NOTE | 2019-06-08 09:21 | REP ---
CHEST PA AND LATERAL: 06/08/2019. COMPARISON: 01/27/2017. CLINICAL HISTORY: Left chest wall pain for 5 days. FINDINGS: Two-views show the lung woo well inflated and without infiltrate, effusion, atelectasis, or mass. Heart, mediastinal and hilar contours are normal. I see no pleural thickening, apical scarring, or pneumothorax. The aorta and airway are intact. Bones without compression deformity or focal lesion. There is no free air under the diaphragm. IMPRESSION: 1. Negative chest. Electronically Signed by Johnathan Oliver MD 06/08/2019 07:44 P
[2019-06-08 09:22] LABS: ERYTHROCYTE SEDIMENTATION RATE 10 mm/hr (0-20)
[2019-06-08] MEDS ORDERED: ACETAMINOPHEN 325 MG TAB PO ONE (10:15)
[2019-06-08] MEDS ORDERED: KETOROLAC 30 MG/ML VIAL (J1885) IV ONE (10:15)
[2019-06-08] MEDS ORDERED: KETO10TAB PO (11:18)
[2019-06-08 11:33] VITALS: BP 132/71
--- NOTE | 2019-06-08 13:22 | ECGEPIP ---
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
== END 2019-06-08 11:34 | disposition home or self-care (01) ==
LOC: M ED 07:50
DX: M94.0 Chondrocostal junction syndrome [Tietze] (principal); S29.011A Strain of muscle and tendon of front wall of thorax, initial encounter; R94.31 Abnormal electrocardiogram [ECG] [EKG]; X58.XXXA Exposure to other specified factors, initial encounter; I10 Essential (primary) hypertension; E78.5 Hyperlipidemia, unspecified; Z79.83 Long term (current) use of bisphosphonates; Z79.899 Other long term (current) drug therapy
CPT/HCPCS: 36415; 71046; 80048; 80076; 82150; 82550; 82553; 83690; 84484; 85025; 85379; 85652; 86140; 93005; 96374; 99284; J1885

== ENCOUNTER 2019-07-22 04:52 | Emergency (ER) | payer OTHER ==
[~2019-07-22] VITALS: Ht 165.1 cm; Wt 75.0 kg
[~2019-07-22 04:52] MED LIST changes: +CRES20TA2 PO; +FEXO-15 PO
[2019-07-22] MEDS ORDERED: ASPI81CH33 PO (04:58)
[2019-07-22 05:35] LABS: BASO % 0.7 % (0.0-1.0); EOS # 0.1 10^3/uL (0.0-0.5); EOS % 1.6 % (0.0-3.0); HEMATOCRIT 35.6 % (36.0-47.0); HEMOGLOBIN 11.4 g/dl (12.0-15.5); LYMPH % 44.8 % (24.0-44.0); MEAN CORPUSCULAR HEMOGLOBIN 28.9 pg (27.0-33.0); MEAN CORPUSCULAR VOLUME 90.4 fl (80.0-96.0); MONO # 0.3 10^3/uL (0.0-0.8); MONO % 7.5 % (0.0-5.0); NEUTROPHILS # 2.1 10^3/uL (1.5-8.5); NEUTROPHILS % 45.4 % (36.0-66.0); PLATELET COUNT, AUTOMATED 230 10^3/uL (150-450); RED BLOOD COUNT 3.94 10^6/uL (4.00-5.40); WHITE BLOOD COUNT 4.5 10^3/uL (4.0-10.0)
[2019-07-22 05:44] LABS: INR 1.06; PROTHROMBIN TIME 13.5 SECONDS (11.8-14.0)
[2019-07-22] MEDS ORDERED: GI COCKTAIL 50ML BTL(HYOSCYAMINE/MAALOX/LIDOCAINE VISCOUS)(1:3:1) PO ONE (06:00)
[2019-07-22] MEDS ORDERED: PANTOPRAZOLE 40MG INJ (PROTONIX) (C9113) IV ONE (06:00)
[2019-07-22 06:05] LABS: BLOOD UREA NITROGEN 9 MG/DL (7-18); CARBON DIOXIDE LEVEL 25 MEQ/L (21-32); CHLORIDE LEVEL 106 MEQ/L (98-107); CREATININE FOR GFR 0.92 MG/DL (0.55-1.30); GLOMERULAR FILTRATION RATE > 60.0 (>58); GLUCOSE, FASTING 100 MG/DL (70-100); POTASSIUM SERUM 3.7 MEQ/L (3.5-5.1); SODIUM LEVEL 138 MEQ/L (136-145)
[2019-07-22 06:20] LABS: ALT/SGPT 25 U/L (12-78); CK-MB VALUE MASS < 1.0 NG/ML (<3.6); CPK CREATINE PHOSPHOKINASE 478 U/L (26-192)
[2019-07-22 06:21] LABS: ALBUMIN 4.2 GM/DL (3.2-5.2); BILIRUBIN,DIRECT 0.1 MG/DL (0.0-0.2); BILIRUBIN,TOTAL 0.4 MG/DL (0.2-1.0); LIPASE 143 U/L (73-393); MB/CK RELATIVE INDEX 0.21 (< OR =4); TOTAL PROTEIN 7.4 GM/DL (6.4-8.2); TROPONIN I < 0.02 NG/ML (< 0.10)
[2019-07-22] MEDS ORDERED: PROT1TAB2 PO (06:23)
[2019-07-22 06:31] VITALS: BP 167/93
--- NOTE | 2019-07-22 07:05 | REP ---
Portable chest, 05:27 a.m., single AP view with the the patient upright: Comparison is the PA and lateral chest dated 06/08/2019. The lung woo are clear. The cardiac size is normal. The michele, mediastinum, and skeletal structures are unremarkable. Impression: Negative portable chest. There is no interval change. Electronically Signed by Justo Mora MD 07/22/2019 06:56 A
--- NOTE | 2019-07-23 06:03 | ECGEPIP ---
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
== END 2019-07-22 06:47 | disposition home or self-care (01) ==
LOC: M ED 04:52
DX: K21.9 Gastro-esophageal reflux disease without esophagitis (principal); F41.9 Anxiety disorder, unspecified; G43.909 Migraine, unspecified, not intractable, without status migrainosus; Z87.891 Personal history of nicotine dependence; Z90.49 Acquired absence of other specified parts of digestive tract; Z79.899 Other long term (current) drug therapy
CPT/HCPCS: 71045; 80047; 80048; 80076; 82550; 82553; 83690; 84484; 85025; 85610; 93005; 93041; 94760; 96374; 99285; C9113

== ENCOUNTER → 2020-01-23 | Outpatient (CLI) | payer OTHER ==
[~2020-01-23] MED LIST changes: +ASPI81CH33 PO; +FEXO-116 PO; -FEXO-15 PO; +PROT1TAB2 PO
== END ==
LOC: M WHC 10:28
PROVIDERS: ATTEND Family Medicine
DX: Z12.31 Encounter for screening mammogram for malignant neoplasm of breast (principal)

== ENCOUNTER → 2020-01-29 | Outpatient (CLI) | payer OTHER ==
[~2020-01-29] MED LIST changes: +PROHANCE 279.3MG/ML 15ML VIAL As Ordered ONE
--- NOTE | 2020-03-25 10:27 | REP ---
BILATERAL BREAST MRI WITH AND WITHOUT CONTRAST HISTORY: Family history of breast cancer. COMPARISON: Mammogram 01/23/2020. TECHNIQUE: Multiple sequences obtained in the axial, coronal, and sagittal planes prior to and following the administration of 13 mL ProHance. Images are evaluated with the [employer] software including dynamic post-IV gadolinium T1 fat sat images, subtraction images, color overlay images, CAD images MIP reconstruction images. Moderate fibroglandular tissue is seen diffusely bilaterally. There is moderate background parenchymal enhancement diffusely bilaterally. There are multiple subcentimeter cysts scattered throughout both breasts. There is a dominant cyst in the 12 o'clock region of the right breast measuring about 1.7 cm in maximum diameter. There is no axillary adenopathy. I see no suspicious enhancing mass or morphologic abnormality. IMPRESSION: BI-RADS category 2 benign bilateral breast MRI. Multiple cysts seen in each breast as discussed above. Moderate fibroglandular tissue. No suspicious enhancing mass or morphologic abnormality. Given the patients elevated lifetime risk of breast cancer of 30.1%, annual supplemental screening MRI of the breasts is recommended in addition to annual screening mammography. MTDD
== END ==
LOC: M RAD 10:35
PROVIDERS: ATTEND Family Medicine
DX: Z12.31 Encounter for screening mammogram for malignant neoplasm of breast (principal); Z80.3 Family history of malignant neoplasm of breast; N60.11 Diffuse cystic mastopathy of right breast; N60.12 Diffuse cystic mastopathy of left breast
CPT/HCPCS: A9576; C8908

== ENCOUNTER → 2023-08-04 | Outpatient (CLI) | payer BC ==
[~2023-08-04] MED LIST changes: -PROHANCE 279.3MG/ML 15ML VIAL As Ordered ONE
[2023-08-04 10:11] LABS: BASO % 0.4 % (0.0-1.0); EOS % 0.2 % (0.0-3.0); HEMATOCRIT 41.1 % (36.0-47.0); HEMOGLOBIN 13.7 g/dl (12.0-15.5); LYMPH # 1.8 10^3/uL (1.5-5.0); MEAN CORPUSCULAR HEMOGLOBIN 29.6 pg (27.0-33.0); MEAN CORPUSCULAR HGB CONC 33.3 g/dl (32.0-36.5); MEAN CORPUSCULAR VOLUME 88.8 fl (80.0-96.0); MONO # 0.3 10^3/uL (0.0-0.8); MONO % 6.5 % (2.0-8.0); NEUTROPHILS # 2.4 10^3/uL (1.5-8.5); NEUTROPHILS % 52.9 % (36.0-66.0); PLATELET COUNT, AUTOMATED 223 10^3/uL (150-450); RED BLOOD COUNT 4.63 10^6/uL (4.00-5.40); WHITE BLOOD COUNT 4.5 10^3/uL (4.0-10.0)
[2023-08-04 10:28] LABS: IRON (FE) 86 UG/DL (50-170)
[2023-08-04 10:29] LABS: ALBUMIN 4.5 G/DL (3.2-5.2); ALKALINE PHOSPHATASE 48 U/L (46-116); ALT/SGPT 18 U/L (7.0-40); AST/SGOT 17 U/L (<34); BILIRUBIN,TOTAL 0.7 MG/DL (0.3-1.2); BLOOD UREA NITROGEN 10 MG/DL (9-23); CALCIUM LEVEL 9.7 MG/DL (8.5-10.1); CARBON DIOXIDE LEVEL 27 MMOL/L (20-31); CHLORIDE LEVEL 101 MMOL/L (98-107); CHOLESTEROL LEVEL 288 MG/DL (<200); CHOLESTEROL RISK RATIO 4.57 (<5); CREATININE FOR GFR 0.73 MG/DL (0.55-1.30); GLOMERULAR FILTRATION RATE > 60.0 (>58); GLUCOSE, FASTING 92 MG/DL (60-100); HDL CHOLESTEROL 62.9 MG/DL (>40); LDL CHOLESTEROL 205.9 MG/DL (<100); NON-HDL-C 225.1 MG/DL; PERCENT SATURATION 24.1 % (13.2-45.0); POTASSIUM SERUM 4.3 MMOL/L (3.5-5.1); SODIUM LEVEL 136 MMOL/L (136-145); TOTAL IRON BINDING CAPACITY 357 UG/DL (250-425); TOTAL PROTEIN 7.8 G/DL (5.7-8.2); TRIGLYCERIDES LEVEL 96 MG/DL (<150)
[2023-08-04 10:32] LABS: FERRITIN 34.1 NG/ML (7.3-270.7)
[2023-08-04 10:33] LABS: THYROID STIMULATING HORMONE 1.172 uIU/ML (0.55-4.78)
[2023-08-04 10:37] LABS: TOTAL 25(OH) VITAMIN D 52.1 NG/ML (20.0-100.0)
[2023-08-04 11:51] LABS: HEMOGLOBIN A1c 5.8 % (4.0-6.0)
== END ==
LOC: M LAB 08:52
PROVIDERS: ATTEND Nurse Practitioner Family
DX: E55.9 Vitamin D deficiency, unspecified (principal)

== ENCOUNTER → 2023-08-17 | Outpatient (CLI) | payer BC, OTHER | LOC: M WHC 15:47 | PROVIDERS: ATTEND Nurse Practitioner Family | DX: Z12.31 Encounter for screening mammogram for malignant neoplasm of breast (principal) ==

== ENCOUNTER → 2023-09-26 | Outpatient (CLI) | payer BC | LOC: M LAB 11:16 | PROVIDERS: ATTEND Nurse Practitioner Family | DX: R76.11 Nonspecific reaction to tuberculin skin test without active tuberculosis (principal) ==

== ENCOUNTER → 2023-10-04 | Outpatient (CLI) | payer BC | LOC: M PLAIMG 11:40 | PROVIDERS: ATTEND Physician Assistant Medical | DX: H92.12 Otorrhea, left ear (principal) ==

== ENCOUNTER → 2023-10-19 | Outpatient (REF) | payer BC, OTHER | LOC: M SFHCWAGY 17:07 | PROVIDERS: ATTEND Nurse Practitioner Family | DX: Z12.4 Encounter for screening for malignant neoplasm of cervix (principal); Z11.51 Encounter for screening for human papillomavirus (HPV) ==

== ENCOUNTER → 2023-10-31 | Outpatient (REF) | payer BC, OTHER ==
[2023-10-31 12:20] LABS: CREATININE, URINE 318.4 MG/DL; MAU/CREAT RATIO 3.4 MCG/MG (0.0-30.0)
== END ==
LOC: M LAB REF 11:24
PROVIDERS: ATTEND Nurse Practitioner Family
DX: I10 Essential (primary) hypertension (principal)

== ENCOUNTER → 2023-11-01 | Outpatient (CLI) | payer BC ==
[2023-11-01 11:13] LABS: FOLATE 19.4 NG/ML (>5.4)
== END ==
LOC: M LAB 09:45
PROVIDERS: ATTEND Nurse Practitioner Family
DX: R53.83 Other fatigue (principal)

== ENCOUNTER → 2024-05-08 | Outpatient (REF) | payer BC ==
[2024-05-08 14:48] LABS: BLOOD UREA NITROGEN 11 MG/DL (9-23); CALCIUM LEVEL 9.6 MG/DL (8.5-10.1); CARBON DIOXIDE LEVEL 28 MMOL/L (20-31); CHLORIDE LEVEL 104 MMOL/L (98-107); CHOLESTEROL LEVEL 291 MG/DL (<200); CHOLESTEROL RISK RATIO 5.92 (<5); CREATININE FOR GFR 0.79 MG/DL (0.55-1.30); GLOMERULAR FILTRATION RATE > 60.0 (>58); GLUCOSE, FASTING 99 MG/DL (60-100); HDL CHOLESTEROL 49.1 MG/DL (>40); LDL CHOLESTEROL 205.1 MG/DL (<100); NON-HDL-C 241.9 MG/DL; POTASSIUM SERUM 4.3 MMOL/L (3.5-5.1); SODIUM LEVEL 139 MMOL/L (136-145); TRIGLYCERIDES LEVEL 184 MG/DL (<150)
== END ==
LOC: M LAB REF 13:51
PROVIDERS: ATTEND Nurse Practitioner Family
DX: I10 Essential (primary) hypertension (principal); E78.5 Hyperlipidemia, unspecified

== ENCOUNTER → 2024-10-29 | Outpatient (CLI) | payer BC ==
[~2024-10-29] MED LIST changes: -FEXO-116 PO; +FEXO-189 PO
== END ==
LOC: M WHC 08:25
PROVIDERS: ATTEND Nurse Practitioner Family
DX: Z12.31 Encounter for screening mammogram for malignant neoplasm of breast (principal)

== ENCOUNTER → 2024-10-29 | Outpatient (REF) | payer BC | LOC: M SFHCWAGY 13:16 | PROVIDERS: ATTEND Nurse Practitioner Family | DX: Z12.4 Encounter for screening for malignant neoplasm of cervix (principal); Z11.51 Encounter for screening for human papillomavirus (HPV); R87.610 Atypical squamous cells of undetermined significance on cytologic smear of cervix (ASC-US); Z77.9 Other contact with and (suspected) exposures hazardous to health ==

== ENCOUNTER → 2025-02-12 | Outpatient (CLI) | payer BC ==
[2025-02-12 11:18] LABS: CHOLESTEROL LEVEL 325.0 MG/DL (<200); CHOLESTEROL RISK RATIO 5.99 (<5); LDL CHOLESTEROL 246.0 MG/DL (<100); NON-HDL-C 270.8 MG/DL; TRIGLYCERIDES LEVEL 124.0 MG/DL (<150)
== END ==
LOC: M LAB 10:23
PROVIDERS: ATTEND Nurse Practitioner Family
DX: R73.03 Prediabetes (principal)

== ENCOUNTER → 2025-05-01 | Outpatient (CLI) | payer BC ==
[~2025-05-01] MED LIST changes: +PROHANCE 279.3MG/ML 15ML VIAL ONE
== END ==
LOC: M PLAIMG 09:04
PROVIDERS: ATTEND Nurse Practitioner Family
DX: R92.333 Mammographic heterogeneous density, bilateral breasts (principal); Z91.89 Other specified personal risk factors, not elsewhere classified; Z80.3 Family history of malignant neoplasm of breast; N60.11 Diffuse cystic mastopathy of right breast; N60.12 Diffuse cystic mastopathy of left breast
CPT/HCPCS: A9576; C8908

== ENCOUNTER 2025-05-06 03:45 | Emergency (ER) | payer BC ==
[~2025-05-06] VITALS: Ht 167.6 cm; Wt 78.2 kg
[~2025-05-06 03:45] MED LIST changes: -PROHANCE 279.3MG/ML 15ML VIAL ONE
[2025-05-06 03:50] VITALS: TEMP 96.9
[2025-05-06] MEDS ORDERED: AMLO1TAB25 (03:56)
[2025-05-06] MEDS ORDERED: LATANOPROST (03:56)
[2025-05-06] MEDS ORDERED: BRIM0.2S13 (03:56)
[2025-05-06] MEDS ORDERED: METF-838 (03:56)
[2025-05-06 04:16] LABS: BASO # 0.0 10^3/uL (0.0-0.2); BASO % 0.5 % (0.0-1.0); EOS # 0.1 10^3/uL (0.0-0.5); EOS % 1.3 % (0.0-3.0); LYMPH # 2.7 10^3/uL (1.5-5.0); LYMPH % 48.0 % (24.0-44.0); MONO # 0.4 10^3/uL (0.0-0.8); MONO % 6.5 % (2.0-8.0); NEUTROPHILS # 2.4 10^3/uL (1.5-8.5); NEUTROPHILS % 43.7 % (36.0-66.0); PLATELET COUNT, AUTOMATED 280 10^3/uL (150-450)
[2025-05-06 04:40] LABS: CK-MB VALUE MASS 1.4 NG/ML (<3.6)
[2025-05-06 04:41] LABS: CALCIUM LEVEL 9.8 MG/DL (8.5-10.1); CARBON DIOXIDE LEVEL 24 MMOL/L (20-31); CHLORIDE LEVEL 104 MMOL/L (98-107); CREATININE FOR GFR 0.82 MG/DL (0.55-1.30); GLOMERULAR FILTRATION RATE 88.7 (>58); POTASSIUM SERUM 4.4 MMOL/L (3.5-5.1); SODIUM LEVEL 140 MMOL/L (136-145)
[2025-05-06 04:45] LABS: CPK CREATINE PHOSPHOKINASE 269 U/L (34-145); MB/CK RELATIVE INDEX 0.52 (< OR =4)
[2025-05-06] MEDS ORDERED: ISOVUE-370 76% 100 ML VIAL As Ordered ONE (05:12)
[2025-05-06] MEDS: KETOROLAC 30 MG/ML 1 ML VIAL IV ONE (05:20)
[2025-05-06 06:02] LABS: CK-MB VALUE MASS 1.3 NG/ML (<3.6)
[2025-05-06 06:04] LABS: CPK CREATINE PHOSPHOKINASE 232 U/L (34-145); MB/CK RELATIVE INDEX 0.56 (< OR =4)
[2025-05-06 08:00] VITALS: BP 117/73; O2SAT 98
== END 2025-05-06 08:30 | disposition home or self-care (01) ==
LOC: M ED 03:45
DX: R07.89 Other chest pain (principal); I10 Essential (primary) hypertension; F10.10 Alcohol abuse, uncomplicated; Z79.84 Long term (current) use of oral hypoglycemic drugs; Z79.899 Other long term (current) drug therapy
CPT/HCPCS: 71045; 71275; 80048; 82550; 82553; 84484; 85025; 93005; 93041; 94760; 96374; 99285; J1885; Q9967